=== PATIENT | male | born 1940 | race African-American/Black ===

== ENCOUNTER 2019-06-28 09:52 | Emergency (ER) | payer MEDICARE ==
[2019-06-28 12:01] LABS: Bilirubin Negative (Negative); Blood, Urine Negative (Negative); Clarity Clear (Clear); Glucose, Urine (Dipstick) 300 mg/dL (Negative); Leukocyte Negative Leu/uL (Negative); Nitrite Negative (Negative); Protein, Urine (Dipstick) Negative (Neg-Trace); Urobilinogen Normal mg/dL (Less than 2)
== END 2019-06-28 12:58 | disposition home or self-care (01) ==
LOC: ERS 09:52
DX: R33.9 Retention of urine, unspecified (principal); I10 Essential (primary) hypertension; E78.00 Pure hypercholesterolemia, unspecified; E11.9 Type 2 diabetes mellitus without complications; J44.9 Chronic obstructive pulmonary disease, unspecified; Z87.891 Personal history of nicotine dependence; Z79.84 Long term (current) use of oral hypoglycemic drugs
CPT/HCPCS: 51702; 81003

== ENCOUNTER 2019-07-12 12:32 | Inpatient (IN) | payer MEDICARE ==
[2019-07-12] MEDS ORDERED: Morphine 4 MG/ML VIAL ONE (13:45)
[2019-07-12] MEDS ORDERED: Ondansetron PF 4 MG/2 ML Vial ONE (13:46)
[2019-07-12 13:50] LABS: #Basophils 0.1 thou/uL (0.0-0.2); #Eosinphils 0.1 thou/uL (0.0-0.7); #Lymphocytes 1.4 thou/uL (1.20-3.40); #Monocytes 2.2 thou/uL (0.11-0.59); #Neutrophils 13.4 thou/uL (1.40-6.50); %Basophils 0.4 % (0.0-1.0); %Eosinophils 0.5 % (0.0-10.0); %Lymphocytes 8.1 % (21.0-51.0); %Monocytes 12.8 % (0.0-10.0); %Neutrophils 78.2 % (42.0-75.0); Hemoglobin 13.6 g/dL (14.0-18.0); Mean Corpuscular HGB CONC 33.9 g/dL (32.0-36.0); Mean Corpuscular Volume 91.2 fL (78.0-98.0); Mean Platelet Volume 8.1 fL (7.4-10.4); Platelet Count 230 thou/uL (130-400); White Blood Cell (WBC) Count 17.2 thou/uL (4.8-10.8)
--- NOTE | 2019-07-12 13:57 | RAD ---
EXAM: Single view of the chest HISTORY: Body aches COMPARISON: None FINDINGS: Single view of the chest shows a normal sized cardiomediastinal silhouette. There is no kvng dence of consolidation, mass, or pleural effusion. Degenerative changes in the spine. IMPRESSION: No evidence of acute cardiopulmonary disease
[2019-07-12 14:13] LABS: ALT (SGPT) 38 U/L (8-55); AST (SGOT) 22 U/L (5-34); Alkaline Phosphatase 84 U/L (40-110); Anion Gap 14 mmol/L (10-20); BUN (Urea Nitrogen) 14 mg/dL (8.4-25.7); Bilirubin, Total 0.6 mg/dL (0.2-1.2); Calc. Creatinine Clearance 0 mL/min (70-130); Calcium 10.1 mg/dL (7.8-10.44); Carbon Dioxide 26 mmol/L (23-31); Chloride 101 mmol/L (98-107); Estimated GFR-MDRD 84; Globulin 3.9 g/dL (2.4-3.5); Glucose 121 mg/dL (83-110); Lipase Less than 4 U/L (8-78); Potassium 3.9 mmol/L (3.5-5.1); Protein, Total 7.9 g/dL (5.8-8.1); Sodium 137 mmol/L (136-145)
[2019-07-12] MEDS ORDERED: Azithromycin 500 MG VIAL ONE (14:17)
[2019-07-12] MEDS ORDERED: Acetaminophen 500 MG TAB ONE (14:17)
[2019-07-12 14:29] LABS: Bilirubin Negative (Negative); Blood, Urine 2+ (Negative); Clarity Turbid (Clear); Glucose, Urine (Dipstick) Normal (Negative); Leukocyte 500 Leu/uL (Negative); Nitrite Negative (Negative); Protein, Urine (Dipstick) 70 mg/dL (Neg-Trace); Squamous Epithelial 0-3 HPF (0-3); Urobilinogen Normal mg/dL (Less than 2); WBC/HPF Greater than 50 HPF (0-3)
[2019-07-12 14:37] LABS: Bacteria/HPF 2+ HPF (None Seen)
[2019-07-12] MEDS ORDERED: cefTRIAXone\\ROCEPHIN 1 GM VIAL ONE (15:39)
--- NOTE | 2019-07-12 16:34 | HP ---
PRIMARY CARE PHYSICIAN: Dr. Breen. REASON FOR ADMISSION: Sepsis, urinary tract infection, and chest pain. HISTORY OF PRESENT ILLNESS: This is a 79-year-old male, who has underlying history of obesity, COPD, and enlarged prostate, who was brought to the emergency room for evaluation of chest discomfort. The patient is a very poor historian. He also reported that he has cough and he was having fever and chills at home. As per the patient's daughter, the patient pulled out the catheter, and since then, he does not have any problem with urination as well. The patient's urine was very dark in the emergency room and it was tea-colored. Urinalysis was consistent with urinary tract infection. His chest x-ray was unremarkable. Routine blood tests showed findings suggestive of leukocytosis, and he was having high-grade fever in the emergency room with temperature 101.2. He was meeting sepsis criteria and the patient was started on broad-spectrum antibiotic therapy after IV fluid. At this point, the patient is being admitted to telemetry floor for further evaluation. REVIEW OF SYSTEMS: CONSTITUTIONAL: Negative for weight loss or gain, ability to conduct usual activities. SKIN: Negative for rash, itching. EYES: Negative for double vision, pain. ENT/MOUTH: Negative for nose bleeding, neck stiffness, pain, tenderness. CARDIOVASCULAR: Negative for palpitations, dyspnea on exertion, orthopnea. RESPIRATORY: Negative for shortness of breath, wheezing, cough, hemoptysis, fever or night sweats. GASTROINTESTINAL: Negative for poor appetite, abdominal pain, heartburn, nausea, vomiting, constipation, or diarrhea. GENITOURINARY: Negative for urgency, frequency, dysuria, nocturia. MUSCULOSKELETAL: Negative for pain, swelling. NEUROLOGIC/PSYCHIATRIC: Negative for anxiety, depression. ALLERGY/IMMUNOLOGIC: Negative for skin rash, bleeding tendency. Please see my HPI for pertinent positives and negatives. All other review of systems reviewed and negative except as mentioned in the HPI. PAST MEDICAL HISTORY: Obesity; hypertension; dyslipidemia; diabetes, type 2; COPD; and enlarged prostate. PAST SURGICAL HISTORY: The patient reports that he had surgery for prostate, he is not sure about further detail. He also had a splint in his right lower extremity. PAST PSYCHIATRIC HISTORY: Reviewed and negative. SOCIAL HISTORY: The patient drinks alcohol socially, about half a pint of beer twice a week. He is a former smoker, he quit smoking more than 10 years ago. He lives with his daughter. FAMILY HISTORY: No strong family history of premature coronary artery disease, stroke, or cancer. ALLERGIES: NO KNOWN DRUG ALLERGIES. CURRENT HOME MEDICATIONS: The patient does not know the name of medication, but the patient's daughter went to home to bring medication bottle, at that time we will review. EMERGENCY ROOM COURSE: The patient has received Rocephin, IV fluid, azithromycin, Tylenol, Zofran, and morphine. PHYSICAL EXAMINATION: VITAL SIGNS: Currently in the emergency room, blood pressure 122/77, pulse 110, respiratory rate 25, temperature 101.2, and saturation 96% on room air. Weight 99.7 kg. GENERAL: The patient is currently alert, awake, follows commands. No obvious acute distress. HEENT: Head; normocephalic, atraumatic. Eyes; pupils round, reactive to light. Extraocular muscle intact. ENT, oropharynx within normal limits. Dry appearing mucous membranes. No oral lesion. No pharyngeal erythema. No exudate. NECK: Supple. No JVD. No meningeal signs of irritation. LUNGS: Grossly clear to auscultation, but obesity limiting examination. No obvious rhonchi or rales heard on examination. CARDIAC: S1 and S2 regular, tachycardia. No murmur. No gallop. No rub. ABDOMEN: Obesity present. Bowel sounds present. Nontender. Nondistended. No organomegaly. No mass. GENITALIA: Within normal limit. BACK: No CVA tenderness. EXTREMITIES: Upper extremities, passive movement of all joints are normal. There is a scar in the left wrist area, which is old. Lower extremity dressed, edema noted. Good distal pulsation. NEUROLOGIC: Grossly nonfocal examination. Speech normal. Cranial nerves 2 through 12 intact. Motor and sensation within normal limits. SKIN: No skin rash. HEMATOLOGICAL SYSTEM: No lymphadenopathy. PSYCHIATRIC: Normal affect. SIGNIFICANT LABORATORY DATA: EKG showing without any significant ST-T changes. Chest x-ray based on my review and reported as no evidence of acute cardiopulmonary process. CBC; WBC is 17.2, hemoglobin 13.6, and platelets 230. D-dimer 0.42. BMP; sodium 137, potassium 3.9, chloride 101, carbon dioxide 26, BUN 14, creatinine 1.03, glucose 121, and calcium 10.1. LFT; AST 22, ALT 38, alkaline phosphatase 84, and albumin 4.0. Lipase less than 4. Urinalysis consistent with urinary tract infection. Lactic acid 3.0. Influenza screen negative. ASSESSMENT AND PLAN: 1. Sepsis. The patient meets sepsis criteria. The patient has a temperature 101.2 as well as tachycardia, leukocytosis with left shift, and source of infection most likely urinary tract infection. The patient has received appropriate IV fluid in the emergency room and received appropriate antibiotic therapy. We will follow up on culture result. We will also add levofloxacin to increase coverage. 2. Urinary tract infection. The patient has enlarged prostate, and we will check for any urinary retention. If needed, then we will we will consider in-and-out catheter versus Pardo catheterization given his history of enlarged prostate. 3. Benign enlargement of prostate. We will continue Flomax 0.4 mg p.o. daily. 4. Chest pain. Description of chest pain is non-anginal, noncardiac. Flu screen is negative. Chest x-ray is normal. EKG is normal. We will keep on telemetry floor for further evaluation with serial cardiac enzyme and monitor on telemetry floor. It is possible that the patient also has respiratory symptoms with cough, and early pneumonia or atypical pneumonia cannot be entirely excluded. D-dimer is negative. 5. Obesity with BMI 30 to 40. Dietary education given. Weight loss education given. 6. Chronic obstructive pulmonary disease. We will continue DuoNeb therapy q.6 hourly p.r.n. 7. Lactic acidosis due to sepsis. We will repeat lactic acid level tomorrow. 8. Deep venous thrombosis prophylaxis, Lovenox 40 mg subcu daily. Gastrointestinal prophylaxis, Pepcid 20 mg p.o. b.i.d. CODE STATUS: The patient is a full code. DISPOSITION PLAN: Based on clinical course, we are expecting the patient's stay in the hospital more than 2 midnights. Plan of care discussed with the patient in detail. Job ID: [id number]
[2019-07-12 18:17] LABS: Lactic Acid 2.8 mmol/L (0.5-2.2)
[2019-07-12 18:25] LABS: Troponin I 0.012 ng/mL (< 0.028)
[2019-07-12 19:11] VITALS: BMI 31.4
[2019-07-12] MEDS ORDERED: Guaifenesin DM 100-10/5 ML UDCUP PO PRN (19:11)
[2019-07-12] MEDS ORDERED: Dextrose 5% in Water 1,000 ML IV PRN (19:11)
[2019-07-12] MEDS ORDERED: Loperamide HCl 2 MG CAP PO PRN (19:11)
[2019-07-12] MEDS ORDERED: Acetaminophen 325 MG TAB PO PRN (19:11)
[2019-07-12] MEDS ORDERED: Zolpidem Tartrate 5 MG TAB PO PRN (19:11)
[2019-07-12] MEDS ORDERED: Diabetic Tussin 200 MG/10 ML UDCUP PO PRN (19:11)
[2019-07-12] MEDS ORDERED: Senokot S 8.6-50 MG TAB PO PRN (19:11)
[2019-07-12] MEDS ORDERED: Calcium Carbonate 500 MG ChewTAB PO PRN (19:11)
[2019-07-12] MEDS ORDERED: Ondansetron ODT 4 MG TAB PO PRN (19:11)
[2019-07-12] MEDS ORDERED: Dextrose 50% Abboject 50 ML SYRINGE SLOW IVP PRN (19:11)
[2019-07-12] MEDS ORDERED: Cepastat Lozenges 1 LOZ PO PRN (19:11)
[2019-07-12] MEDS ORDERED: HYDROcodone/Acetaminophen 5/325 mg Tablet PO PRN (19:11)
[2019-07-12] MEDS ORDERED: Bisacodyl 10 MG SUPP PR PRN (19:11)
[2019-07-12] MEDS ORDERED: hydrALAZINE 20 MG/ML VIAL SLOW IVP PRN (19:11)
[2019-07-12] MEDS ORDERED: Ondansetron PF 4 MG/2 ML Vial IVP PRN (19:11)
[2019-07-12] MEDS ORDERED: HumaLOG 300 UNITS/3 ML VIAL SC PRN ×2 (19:11)
[2019-07-12] MEDS ORDERED: Sodium Chloride 0.65% Nasal 44 ML BOT EA NARE PRN (19:11)
[2019-07-12] MEDS ORDERED: Loratadine 10 MG TAB PO PRN (19:11)
[2019-07-12] MEDS ORDERED: Artificial Tears 18 DROP/0.9 ML EA EYE PRN (19:11)
[2019-07-12 19:58] LABS: Troponin I 0.035 ng/mL (< 0.028)
[2019-07-12] MEDS: Sodium Chloride 0.9% 1,000 ML IV SCH (20:25)
[2019-07-12] MEDS: Famotidine 20 MG TAB PO SCH (20:26)
[2019-07-12] MEDS: Tamsulosin HCl 0.4 MG CAP PO SCH (20:26)
[2019-07-13 04:57] LABS: Anion Gap 14 mmol/L (10-20); BUN (Urea Nitrogen) 15 mg/dL (8.4-25.7); Calc. Creatinine Clearance 77 mL/min (70-130); Calcium 8.9 mg/dL (7.8-10.44); Carbon Dioxide 20 mmol/L (23-31); Chloride 103 mmol/L (98-107); Estimated GFR-MDRD 77; Glucose 138 mg/dL (83-110); Lactic Acid 1.5 mmol/L (0.5-2.2); Potassium 4.1 mmol/L (3.5-5.1); Sodium 133 mmol/L (136-145)
[2019-07-13 05:22] LABS: Band 11 % (5-11); Hemoglobin 11.9 g/dL (14.0-18.0); Lymphocytes 8 % (21-51); MDiff Complete? YES; Mean Corpuscular HGB CONC 31.8 g/dL (32.0-36.0); Mean Corpuscular Hemoglobin 29.2 pg (27.0-31.0); Mean Corpuscular Volume 91.8 fL (78.0-98.0); Mean Platelet Volume 8.7 fL (7.4-10.4); Monocytes 9 % (0-10); Neutrophil 72 % (42-75); Platelet Count 227 thou/uL (130-400); Platelet Morphology Comment Appears Adequate; RBC Distribution Width 12.1 % (11.5-14.5); Red Blood Cell (RBC) Count 4.09 mill/uL (4.70-6.10); White Blood Cell (WBC) Count 27.3 thou/uL (4.8-10.8)
[2019-07-13] MEDS: metFORMIN XR 500 MG TAB PO SCH ×2 (08:09→16:53)
[2019-07-13] MEDS: Aspirin Chewable 81 MG TAB PO SCH (08:11)
[2019-07-13] MEDS: Pregabalin 50 MG CAP PO SCH ×2 (08:11→21:06)
[2019-07-13] MEDS: Famotidine 20 MG TAB PO SCH ×2 (08:12→21:06)
[2019-07-13] MEDS: Amlodipine 10 MG TAB PO SCH (08:12)
[2019-07-13] MEDS: Enoxaparin Sodium 40 MG/0.4 ML SYRINGE SC SCH (08:12)
[2019-07-13] MEDS: Saccharomyces boulardii 250 MG CAP PO SCH (08:12)
[2019-07-13] MEDS: Sodium Chloride 0.9% 1,000 ML IV SCH (08:13)
--- NOTE | 2019-07-13 08:47 | CT ---
CT Stone Protocol: 07/13/2019 6:41 AM HISTORY: Right-sided back and flank pain COMPARISON: None. TECHNIQUE: Multiple contiguous axial images were obtained and a CT of the abdomen and pelvis without IV contrast . Coronal and sagittal reformats were performed. FINDINGS: This examination is limited for the evaluation of solid organs and vascular structures due to the lac k of intravenous contrast. Lower Chest: within normal limits. Abdomen: Liver: within normal limits. Bile Ducts: Normal caliber. Gallbladder: No calcified gallstones. Normal caliber wall. Pancreas: within normal limits. Spleen: within normal limits. Adrenals: 1.7 cm right adrenal nodule with mean Hounsfield unit value of approximately 0. Kidneys: within normal limits. Pelvis: Reproductive Organs: No pelvic masses. Ureters: within normal limits. Bladder: within normal limits. Bowel: Normal caliber. Scattered diverticula in the colon. Mesenteric Lymph Nodes: No enlarged mesenteric lymph nodes. Peritoneum: No ascites or free air, no fluid collection. Vessels: Atherosclerotic calcifications in the aorta Retroperitoneum: within normal limits. Abdominal Wall: Postsurgical changes are seen along the anterior abdominal wall from prior hernia rep air. Bones: Degenerative changes in the spine. IMPRESSION: 1. No evidence of acute intraabdominal or pelvic abnormality. 2. Fat-containing right adrenal adenoma.
[2019-07-13] MEDS ORDERED: Non-Formulary Item 1 EACH (Metformin Hcl [Metformin Hcl Er] 750 MG) PO SCH (09:00)
[2019-07-13] MEDS ORDERED: Prevnar 13-Val Conj/PF 0.5 ML SYRINGE IM ONE (09:00)
[2019-07-13] MEDS ORDERED: FLU VACC TS2019-20(65YR UP)/PF 180 MCG/0.5 ML SYRINGE IM ONE (09:00)
--- NOTE | 2019-07-13 10:06 | PDOC.HOSPP ---
- Subjective Encounter Date: 07/13/19 Encounter Time: 08:20 Subjective: Patient seen and examined. No new complaints. No overnight events - Objective Vital Signs & Weight: Vital Signs (12 hours) Temp Pulse Resp BP Pulse Ox 07/13/19 08:12 114 H 07/13/19 08:00 98.5 F 112 H 18 134/72 95 07/13/19 03:00 98.7 F 114 H 18 118/57 L 92 L Weight Weight 225 lb 1.471 oz I&O: 07/12/19 07/13/19 07/14/19 06:59 06:59 06:59 Intake Total 1080 Output Total 750 Balance 330 Result Diagrams: 07/13/19 04:01 07/13/19 04:01 Additional Labs: Accuchecks 07/13/19 07/12/19 05:45 22:00 POC Glucose 129 H 228 H Radiology Reviewed by me: Yes (CT stone) EKG Reviewed by me: Yes Hospitalist ROS - Review of Systems Constitutional: denies: fever, chills, sweats, weakness, malaise, other ENT: denies: ear pain, ear discharge, nose pain, nose discharge, nose congestion , mouth pain, mouth swelling, throat pain, throat swelling, other Respiratory: denies: cough, dry, shortness of breath, hemoptysis, SOB with excertion, pleuritic pain, sputum, wheezing, other Cardiovascular: denies: chest pain, palpitations, orthopnea, paroxysmal noc. dyspnea, edema, light headedness, other Gastrointestinal: denies: nausea, vomiting, abdominal pain, diarrhea, constipation, melena, hematochezia, other Genitourinary: denies: dysuria, frequency, incontinence, hematuria, retention, other Musculoskeletal: denies: neck pain, shoulder pain, arm pain, back pain, hand pain, leg pain, foot pain, other Skin: denies: rash, lesions, ofelia, bruising, other - Medication Medications: Active Medications Generic Name Dose Route Start Last Admin Trade Name Freq PRN Reason Stop Dose Admin Hydrocodone Bitart/Acetaminophen 1 tab 07/12/19 19:11 07/13/19 08:21 [place] 5/325 PO 1 tab Q4H PRN Administration Moderate Pain (4-6) Amlodipine Besylate 10 mg 07/13/19 09:00 07/13/19 08:12 Norvasc PO 10 mg DAILY AUTUMN Administration Aspirin 81 mg 07/13/19 09:00 07/13/19 08:11 Aspirin Chewable PO 81 mg DAILY AUTUMN Administration Enoxaparin Sodium 40 mg 07/13/19 09:00 07/13/19 08:12 Lovenox SC 40 mg 0900 AUTUMN Administration Famotidine 20 mg 07/12/19 21:00 07/13/19 08:12 Pepcid PO 20 mg BID AUTUMN Administration Levofloxacin 750 mg/ Device 150 mls @ 100 mls/hr 07/12/19 20:00 07/12/19 20: 25 IVPB 150 mls 2000 AUTUMN Administration Metformin HCl 750 mg 07/13/19 08:00 07/13/19 08:09 Glucophage Xr PO 750 mg BID-WM AUTUMN Administration Pregabalin 50 mg 07/13/19 09:00 07/13/19 08:11 Lyrica PO 50 mg BID AUTUMN Administration Saccharomyces Boulardii 250 mg 07/13/19 09:00 07/13/19 08:12 Florastor PO 250 mg DAILY AUTUMN Administration Tamsulosin HCl 0.4 mg 07/12/19 21:00 07/12/19 20:26 Flomax PO 0.4 mg HS AUTUMN Administration - Exam General Appearance: NAD, awake alert Eye: PERRL, anicteric sclera ENT: normocephalic atraumatic, no oropharyngeal lesions Neck: supple, symmetric, no JVD Heart: RRR, no murmur, no gallops, no rubs Respiratory: CTAB, no wheezes, no rales, no ronchi Gastrointestinal: soft, non-tender, non-distended, normal bowel sounds Extremities: no cyanosis, no clubbing, no edema Skin: normal turgor, no lesions Neurological: no focal deficits Musculoskeletal: normal tone, normal strength Psychiatric: normal affect, normal behavior Hosp A/P (1) Sepsis Code(s): A41.9 - SEPSIS, UNSPECIFIED ORGANISM Status: Acute Qualifiers: Sepsis type: sepsis due to unspecified organism Sepsis acute organ dysfunction status: without acute organ dysfunction Qualified Code(s): A41.9 - Sepsis, unspecified organism (2) UTI (urinary tract infection) Status: Acute Qualifiers: Urinary tract infection type: acute cystitis Hematuria presence: without hematuria Qualified Code(s): N30.00 - Acute cystitis without hematuria (3) Lactic acidosis Code(s): E87.2 - ACIDOSIS Status: Acute (4) Type [address] elevation Code(s): I21.A1 - MYOCARDIAL INFARCTION TYPE 2 Status: Acute (5) Hypertension Code(s): I10 - ESSENTIAL (PRIMARY) HYPERTENSION Status: Chronic Qualifiers: Hypertension type: essential hypertension Qualified Code(s): I10 - Essential (primary) hypertension (6) Diabetes type 2, controlled Code(s): E11.9 - TYPE 2 DIABETES MELLITUS WITHOUT COMPLICATIONS Status: Chronic Qualifiers: Diabetes mellitus watermelon inspector insulin use: with residential use Diabetes mellitus complication status: without complication Qualified Code(s): E11.9 - Type 2 diabetes mellitus without complications; Z79.4 - buttermilk drier operator (current) use of insulin (7) Dyslipidemia Code(s): E78.5 - HYPERLIPIDEMIA, UNSPECIFIED Status: Chronic (8) Obesity (BMI 30-39.9) Code(s): E66.9 - OBESITY, UNSPECIFIED Status: Chronic - Plan old records reviewed/req, continue antibiotics, PT/OT 07/13/[address]in and le[address] sone protocol reviewed follow culture continue PT/OT medication reviewed as above and continue to provide supportive jail medication reconciled
[2019-07-13] MEDS: cefTRIAXone\\ROCEPHIN 1 GM in Sodium Chloride 0.9% 100 ML IVPB SCH (15:42)
[2019-07-13] MEDS: Atorvastatin Calcium 20 MG TAB PO SCH (21:06)
[2019-07-13] MEDS: Tamsulosin HCl 0.4 MG CAP PO SCH (21:07)
[2019-07-14 05:02] LABS: #Basophils 0.1 thou/uL (0.0-0.2); #Eosinphils 0.2 thou/uL (0.0-0.7); #Monocytes 2.3 thou/uL (0.11-0.59); %Basophils 0.3 % (0.0-1.0); %Eosinophils 1.1 % (0.0-10.0); %Monocytes 12.4 % (0.0-10.0); %Neutrophils 70.2 % (42.0-75.0); Hemoglobin 11.4 g/dL (14.0-18.0); Mean Corpuscular HGB CONC 33.6 g/dL (32.0-36.0); Mean Corpuscular Hemoglobin 30.4 pg (27.0-31.0); Mean Corpuscular Volume 90.4 fL (78.0-98.0); Mean Platelet Volume 8.8 fL (7.4-10.4); Platelet Count 211 thou/uL (130-400); RBC Distribution Width 11.9 % (11.5-14.5); Red Blood Cell (RBC) Count 3.75 mill/uL (4.70-6.10); White Blood Cell (WBC) Count 18.5 thou/uL (4.8-10.8)
[2019-07-14 05:26] LABS: Anion Gap 12 mmol/L (10-20); BUN (Urea Nitrogen) 17 mg/dL (8.4-25.7); Calc. Creatinine Clearance 75 mL/min (70-130); Calcium 8.7 mg/dL (7.8-10.44); Carbon Dioxide 24 mmol/L (23-31); Chloride 103 mmol/L (98-107); Estimated GFR-MDRD 74; Glucose 111 mg/dL (83-110); Potassium 3.8 mmol/L (3.5-5.1); Sodium 135 mmol/L (136-145)
[2019-07-14] MEDS: Famotidine 20 MG TAB PO SCH ×2 (08:49→20:09)
[2019-07-14] MEDS: Saccharomyces boulardii 250 MG CAP PO SCH (08:49)
[2019-07-14] MEDS: metFORMIN XR 500 MG TAB PO SCH ×2 (08:49→18:05)
[2019-07-14] MEDS: Aspirin Chewable 81 MG TAB PO SCH (08:49)
[2019-07-14] MEDS: Enoxaparin Sodium 40 MG/0.4 ML SYRINGE SC SCH (08:50)
[2019-07-14] MEDS: Amlodipine 10 MG TAB PO SCH (08:50)
[2019-07-14] MEDS: Pregabalin 50 MG CAP PO SCH ×2 (08:51→20:08)
--- NOTE | 2019-07-14 10:35 | PDOC.HOSPP ---
- Subjective Encounter Date: 07/14/19 Encounter Time: 08:15 Subjective: Patient seen and examined. No new complaints. No overnight events - Objective Vital Signs & Weight: Vital Signs (12 hours) Temp Pulse Resp BP Pulse Ox 07/14/19 08:50 80 07/14/19 04:00 98.7 F 80 18 108/53 L 95 07/14/19 00:00 98.4 F 101 H 18 134/63 95 Weight Weight 225 lb 1.471 oz I&O: 07/13/19 07/14/19 07/15/19 06:59 06:59 06:59 Intake Total 1080 840 Output Total 750 Balance 330 840 Result Diagrams: 07/14/19 04:30 07/14/19 04:30 Additional Labs: Accuchecks 07/14/19 07/13/19 07/13/19 05:53 20:54 16:24 POC Glucose 123 H 149 H 123 H 07/13/19 10:45 POC Glucose 180 H EKG Reviewed by me: Yes Hospitalist ROS - Review of Systems ENT: denies: ear pain, ear discharge, nose pain, nose discharge, nose congestion , mouth pain, mouth swelling, throat pain, throat swelling, other Respiratory: denies: cough, dry, shortness of breath, hemoptysis, SOB with excertion, pleuritic pain, sputum, wheezing, other Cardiovascular: denies: chest pain, palpitations, orthopnea, paroxysmal noc. dyspnea, edema, light headedness, other Gastrointestinal: denies: nausea, vomiting, abdominal pain, diarrhea, constipation, melena, hematochezia, other Genitourinary: denies: dysuria, frequency, incontinence, hematuria, retention, other Musculoskeletal: denies: neck pain, shoulder pain, arm pain, back pain, hand pain, leg pain, foot pain, other - Medication Medications: Active Medications Generic Name Dose Route Start Last Admin Trade Name Freq PRN Reason Stop Dose Admin Hydrocodone Bitart/Acetaminophen 1 tab 07/12/19 19:11 07/13/19 08:21 [place] 5/325 PO 1 tab Q4H PRN Administration Moderate Pain (4-6) Amlodipine Besylate 10 mg 07/13/19 09:00 07/14/19 08:50 Norvasc PO 10 mg DAILY AUTUMN Administration Aspirin 81 mg 07/13/19 09:00 07/14/19 08:49 Aspirin Chewable PO 81 mg DAILY AUTUMN Administration Atorvastatin Calcium 20 mg 07/13/19 21:00 07/13/19 21:06 Lipitor PO 20 mg HS AUTUMN Administration Enoxaparin Sodium 40 mg 07/13/19 09:00 07/14/19 08:50 Lovenox SC 40 mg 0900 AUTUMN Administration Famotidine 20 mg 07/12/19 21:00 07/14/19 08:49 Pepcid PO 20 mg BID AUTUMN Administration Ceftriaxone Sodium 1 gm/ 100 mls @ 200 mls/hr 07/13/19 15:00 07/13/19 15:42 Sodium Chloride IVPB 100 mls 1500 AUTUMN Administration Levofloxacin 750 mg/ Device 150 mls @ 100 mls/hr 07/12/19 20:00 07/13/19 21: 07 IVPB 150 mls 2000 AUTUMN Administration Metformin HCl 750 mg 07/13/19 08:00 07/14/19 08:49 Glucophage Xr PO 750 mg BID-WM AUTUMN Administration Pregabalin 50 mg 07/13/19 09:00 07/14/19 08:51 Lyrica PO 50 mg BID AUTUMN Administration Saccharomyces Boulardii 250 mg 07/13/19 09:00 07/14/19 08:49 Florastor PO 250 mg DAILY AUTUMN Administration Tamsulosin HCl 0.4 mg 07/12/19 21:00 07/13/19 21:07 Flomax PO 0.4 mg HS AUTUMN Administration - Exam General Appearance: NAD, awake alert Eye: PERRL, anicteric sclera ENT: normocephalic atraumatic, no oropharyngeal lesions Neck: supple, symmetric, no JVD Heart: RRR, no murmur, no gallops, no rubs Respiratory: CTAB, no wheezes, no rales, no ronchi Gastrointestinal: soft, non-tender, non-distended, normal bowel sounds Extremities: no cyanosis, no clubbing, no edema Skin: normal turgor, no lesions Neurological: no focal deficits Musculoskeletal: normal tone, normal strength Psychiatric: normal affect, normal behavior Hosp A/P (1) Sepsis Code(s): A41.9 - SEPSIS, UNSPECIFIED ORGANISM Status: Acute Qualifiers: Sepsis type: sepsis due to unspecified organism Sepsis acute organ dysfunction status: without acute organ dysfunction Qualified Code(s): A41.9 - Sepsis, unspecified organism (2) UTI (urinary tract infection) Status: Acute Qualifiers: Urinary tract infection type: acute cystitis Hematuria presence: without hematuria Qualified Code(s): N30.00 - Acute cystitis without hematuria (3) Lactic acidosis Code(s): E87.2 - ACIDOSIS Status: Acute (4) Type [address] elevation Code(s): I21.A1 - MYOCARDIAL INFARCTION TYPE 2 Status: Acute (5) Hypertension Code(s): I10 - ESSENTIAL (PRIMARY) HYPERTENSION Status: Chronic Qualifiers: Hypertension type: essential hypertension Qualified Code(s): I10 - Essential (primary) hypertension (6) Diabetes type 2, controlled Code(s): E11.9 - TYPE 2 DIABETES MELLITUS WITHOUT COMPLICATIONS Status: Chronic Qualifiers: Diabetes mellitus skilled nursing insulin use: with skilled nursing use Diabetes mellitus complication status: without complication Qualified Code(s): E11.9 - Type 2 diabetes mellitus without complications; Z79.4 - laborer marine terminal (current) use of insulin (7) Dyslipidemia Code(s): E78.5 - HYPERLIPIDEMIA, UNSPECIFIED Status: Chronic (8) Obesity (BMI 30-39.9) Code(s): E66.9 - OBESITY, UNSPECIFIED Status: Chronic - Plan old records reviewed/req, continue antibiotics 07/13/[address]in and levaquin [address] blessing protocol reviewed follow culture continue PT/OT medication reviewed as above and continue to provide supportive [facility] medication reconciled 07/14/19 DC tele transfer to medical medication reviewed as above and symptomatic treatment expecting discharge in 24 hours follow culture
[2019-07-14] MEDS: cefTRIAXone\\ROCEPHIN 1 GM in Sodium Chloride 0.9% 100 ML IVPB SCH (16:18)
[2019-07-14] MEDS: Tamsulosin HCl 0.4 MG CAP PO SCH (20:09)
[2019-07-14] MEDS: Atorvastatin Calcium 20 MG TAB PO SCH (20:09)
[2019-07-15 00:49] VITALS: TEMP 98.4
[2019-07-15 06:18] LABS: #Eosinphils 0.4 thou/uL (0.0-0.7); #Lymphocytes 2.5 thou/uL (1.20-3.40); #Monocytes 1.6 thou/uL (0.11-0.59); #Neutrophils 7.8 thou/uL (1.40-6.50); %Basophils 0.4 % (0.0-1.0); %Lymphocytes 20.1 % (21.0-51.0); %Monocytes 13.2 % (0.0-10.0); %Neutrophils 63.4 % (42.0-75.0); Hemoglobin 11.7 g/dL (14.0-18.0); Mean Corpuscular HGB CONC 33.3 g/dL (32.0-36.0); Mean Corpuscular Volume 90.3 fL (78.0-98.0); Mean Platelet Volume 8.2 fL (7.4-10.4); Platelet Count 247 thou/uL (130-400); RBC Distribution Width 11.9 % (11.5-14.5); Red Blood Cell (RBC) Count 3.89 mill/uL (4.70-6.10); White Blood Cell (WBC) Count 12.3 thou/uL (4.8-10.8)
[2019-07-15] MEDS ORDERED: metFORMIN 500 MG TAB PO SCH (08:00)
[2019-07-15] MEDS: Aspirin Chewable 81 MG TAB PO SCH (08:19)
[2019-07-15] MEDS: Famotidine 20 MG TAB PO SCH (08:19)
[2019-07-15] MEDS: Saccharomyces boulardii 250 MG CAP PO SCH (08:19)
[2019-07-15] MEDS: Amlodipine 10 MG TAB PO SCH (08:19)
[2019-07-15] MEDS: Enoxaparin Sodium 40 MG/0.4 ML SYRINGE SC SCH (08:20)
[2019-07-15] MEDS: Pregabalin 50 MG CAP PO SCH (08:20)
--- NOTE | 2019-07-15 10:45 | PDOC.HOSPP ---
- Subjective Encounter Date: 07/15/19 Encounter Time: 09:10 Subjective: Patient seen and examined. No new complaints. No overnight events - Objective Vital Signs & Weight: Vital Signs (12 hours) Temp Pulse Resp BP BP Pulse Ox 07/15/19 08:19 90 124/73 07/15/19 07:49 98.4 F 90 18 124/73 99 07/15/19 04:30 98.4 F 79 16 117/67 93 L 07/15/19 00:00 98.4 F 97 18 124/64 93 L Weight Weight 225 lb 1.471 oz I&O: 07/14/19 07/15/19 07/16/19 06:59 06:59 06:59 Intake Total 840 600 Output Total 1450 Balance 840 -850 Result Diagrams: 07/15/19 05:36 07/14/19 04:30 Additional Labs: Accuchecks 07/15/19 07/14/19 07/14/19 04:32 19:30 17:03 POC Glucose 125 H 150 H 113 H 07/14/19 10:52 POC Glucose 171 H Hospitalist ROS - Review of Systems ENT: denies: ear pain, ear discharge, nose pain, nose discharge, nose congestion , mouth pain, mouth swelling, throat pain, throat swelling, other Respiratory: denies: cough, dry, shortness of breath, hemoptysis, SOB with excertion, pleuritic pain, sputum, wheezing, other Cardiovascular: denies: chest pain, palpitations, orthopnea, paroxysmal noc. dyspnea, edema, light headedness, other Gastrointestinal: denies: nausea, vomiting, abdominal pain, diarrhea, constipation, melena, hematochezia, other Genitourinary: denies: dysuria, frequency, incontinence, hematuria, retention, other Musculoskeletal: denies: neck pain, shoulder pain, arm pain, back pain, hand pain, leg pain, foot pain, other - Medication Medications: Active Medications Generic Name Dose Route Start Last Admin Trade Name Freq PRN Reason Stop Dose Admin Hydrocodone Bitart/Acetaminophen 1 tab 07/12/19 19:11 07/13/19 08:21 [place] 5/325 PO 1 tab Q4H PRN Administration Moderate Pain (4-6) Amlodipine Besylate 10 mg 07/13/19 09:00 07/15/19 08:19 Norvasc PO 10 mg DAILY AUTUMN Administration Aspirin 81 mg 07/13/19 09:00 07/15/19 08:19 Aspirin Chewable PO 81 mg DAILY AUTUMN Administration Atorvastatin Calcium 20 mg 07/13/19 21:00 07/14/19 20:09 Lipitor PO 20 mg HS AUTUMN Administration Enoxaparin Sodium 40 mg 07/13/19 09:00 07/15/19 08:20 Lovenox SC 40 mg 0900 AUTUMN Administration Famotidine 20 mg 07/12/19 21:00 07/15/19 08:19 Pepcid PO 20 mg BID AUTUMN Administration Ceftriaxone Sodium 1 gm/ 100 mls @ 200 mls/hr 07/13/19 15:00 07/14/19 16:18 Sodium Chloride IVPB 100 mls 1500 AUTUMN Administration Levofloxacin 750 mg/ Device 150 mls @ 100 mls/hr 07/12/19 20:00 07/14/19 20: 07 IVPB 150 mls 2000 AUTUMN Administration Metformin HCl 750 mg 07/15/19 08:00 07/15/19 08:18 Glucophage PO 750 mg BID-WM AUTUMN Administration Pregabalin 50 mg 07/13/19 09:00 07/15/19 08:20 Lyrica PO 50 mg BID AUTUMN Administration Saccharomyces Boulardii 250 mg 07/13/19 09:00 07/15/19 08:19 Florastor PO 250 mg DAILY AUTUMN Administration Tamsulosin HCl 0.4 mg 07/12/19 21:00 07/14/19 20:09 Flomax PO 0.4 mg HS AUTUMN Administration - Exam General Appearance: NAD, awake alert Eye: PERRL, anicteric sclera ENT: normocephalic atraumatic, no oropharyngeal lesions Neck: supple, symmetric, no JVD Heart: RRR, no murmur, no gallops Respiratory: CTAB, no wheezes, no rales Gastrointestinal: soft, non-tender, non-distended, normal bowel sounds Extremities: no clubbing, no edema Skin: normal turgor, no lesions Neurological: no focal deficits Musculoskeletal: normal tone, normal strength Psychiatric: normal affect, normal behavior Hosp A/P (1) Sepsis Code(s): A41.9 - SEPSIS, UNSPECIFIED ORGANISM Status: Acute Qualifiers: Sepsis type: sepsis due to unspecified organism Sepsis acute organ dysfunction status: without acute organ dysfunction Qualified Code(s): A41.9 - Sepsis, unspecified organism (2) UTI (urinary tract infection) Status: Acute Qualifiers: Urinary tract infection type: acute cystitis Hematuria presence: without hematuria Qualified Code(s): N30.00 - Acute cystitis without hematuria (3) Lactic acidosis Code(s): E87.2 - ACIDOSIS Status: Acute (4) Type [address] elevation Code(s): I21.A1 - MYOCARDIAL INFARCTION TYPE 2 Status: Acute (5) Hypertension Code(s): I10 - ESSENTIAL (PRIMARY) HYPERTENSION Status: Chronic Qualifiers: Hypertension type: essential hypertension Qualified Code(s): I10 - Essential (primary) hypertension (6) Diabetes type 2, controlled Code(s): E11.9 - TYPE 2 DIABETES MELLITUS WITHOUT COMPLICATIONS Status: Chronic Qualifiers: Diabetes mellitus senior 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 Diabetes mellitus complication status: without complication Qualified Code(s): E11.9 - Type 2 diabetes mellitus without complications; Z79.4 - intermediate (current) use of insulin (7) Dyslipidemia Code(s): E78.5 - HYPERLIPIDEMIA, UNSPECIFIED Status: Chronic (8) Obesity (BMI 30-39.9) Code(s): E66.9 - OBESITY, UNSPECIFIED Status: Chronic - Plan old records reviewed/req, continue antibiotics 07/13/[address] continue [address]ce[address]in and levaquin CT blessing protocol reviewed follow culture continue PT/OT medication reviewed as above and continue to provide supportive residential medication reconciled 07/14/19 DC tele transfer to medical medication reviewed as above and symptomatic treatment expecting discharge in 24 hours follow culture 07/15/19 medication reviewed as above and continue to provide supportive care stable for discharge see discharge mary
[2019-07-15 11:26] VITALS: BP 134/67
--- NOTE | 2019-07-15 13:07 | DIS ---
DATE OF ADMISSION: 07/12/2019 DATE OF DISCHARGE: 07/15/2019 PRIMARY CARE PHYSICIAN: Dr. Breen. DISCHARGE DISPOSITION: Home. PRIMARY DISCHARGE DIAGNOSES: 1. Sepsis due to urinary tract infection. 2. Type [address] elevation due to demand ischemia. 3. Lactic acidosis due to sepsis. 4. Urinary tract infection. SECONDARY DISCHARGE DIAGNOSES: 1. Obesity with BMI 31. 2. Hypertension. 3. Dyslipidemia. 4. Diabetes type 2. PRIMARY PROCEDURE/OPERATION: None. RADIOLOGIST INVESTIGATION: Chest x-ray normal. CT abdomen and pelvis negative for any kidney stone. SIGNIFICANT LABORATORY DATA: WBC 12.3, hemoglobin 11.7, platelet 247. D-dimer 0.42. Sodium 135, potassium 3.8, BUN 17, creatinine 1.16, calcium 8.7. Lactic acid 1.5. Urinalysis suggestive of UTI. Blood culture negative. DISCHARGE MEDICATION: 1. Amlodipine 10 mg daily. 2. Lipitor 20 mg p.o. at bedtime. 3. Hydralazine 50 mg b.i.d. 4. Metformin 750 mg b.i.d. 5. Lyrica 50 mg twice daily. 6. Omnicef 300 mg p.o. twice daily for 7 days. CONTRAINDICATION: None. CODE STATUS: Full code. INPATIENT DROP WORKER: None. ALLERGIES: NO KNOWN DRUG ALLERGIES. DISCHARGE PLAN: Posthospital the patient is instructed to make appointment with primary care physician in one week. HOSPITAL COURSE: A 79-year-old male with above-mentioned medical problem, who was admitted by me. Please see my HPI for more details. The patient was brought to ER because he was having vague chest discomfort and that is why we kept in hospital and ruled out acute coronary syndrome. The patient was also having urinary tract infection and in the emergency room he was having fever and he was meeting sepsis criteria. We admitted him to telemetry floor initially and treated him with broad-spectrum antibiotic therapy with Rocephin and levofloxacin. On discharge, we changed to Omnicef. The patient had a CT stone protocol which was negative for any acute process. Chest x-ray was unremarkable. While in hospital, he remained hemodynamically stable, afebrile and tolerating p.o. well and ambulatory. The patient is seen and examined at bedside today. All new medication prescription sent to his pharmacy. The patient is medically stable for discharge today. Job ID: [id number]
--- NOTE | 2019-07-16 09:53 | PQF ---
LUZ VERMA SALIM NOORJIBHAI MD [id number] CLINICAL DOCUMENTATION CLARIFICATION FORM: POST DISCHARGE Addendum to original discharge summary date: ____ Late entry note date: __ DATE: 07/16/2019 ATTN :TRUE RICK MD Please exercise your independent, professional judgment in responding to the clarification form. Clinical indicators are provided on the bottom of this form for your review Please check appropriate box(s): [ ] UTI is due to Garcia catheter [x ] UTI is not due to Garcia catheter [ ] Other diagnosis [ ] Unable to determine For continuity of documentation, please document condition throughout progress notes and discharge summary. Thank You. CLINICAL INDICATORS - SIGNS / SYMPTOMS / LABS Discussed that pt has UTI.Daughter reports pt has garcia placed a few days ago- documented in ED on 07/12 by Nando Victor Urinary tract infection.The patient has enlarged prostate and we will check for any urinary retention.If needed then we will consider in and out catheter versus garcia ..catheterization given his history of enlarged prostate.Documented in H&P on 07/12 by True Rick Urinalysis consistent with UTI-.Documented in H&P on 07/12 by True Rick Sepsis due to UTI-Documented in DS on 07/15 by True Rick RISK FACTORS History of enlarged prostate.Documented in H&P on 07/12 by True Rick Sepsis due to UTI-Documented in DS on 07/15 by True Rick TREATMENT: Rocephin 1 gm IV-Medication snapshot Azithromycin 500mg-Medication snapshot (This form is maintained as a part of the permanent medical record) 2014 [email or web address]. All Rights Reserved [email or web address] [not provided] MTDD
== END 2019-07-15 12:49 | disposition home or self-care (01) | DRG 871 ==
LOC: ERS 12:32 → 2NO 18:33 → T4-B 07-14 15:44
PROVIDERS: ADMIT Internal Medicine; ATTEND Internal Medicine
DX: A41.9 Sepsis, unspecified organism (principal); I21.A1 Myocardial infarction type 2; E87.2 Acidosis; N30.00 Acute cystitis without hematuria; E66.9 Obesity, unspecified; Z68.31 Body mass index [BMI] 31.0-31.9, adult; I10 Essential (primary) hypertension; E11.9 Type 2 diabetes mellitus without complications; E78.5 Hyperlipidemia, unspecified; Z87.891 Personal history of nicotine dependence; J44.9 Chronic obstructive pulmonary disease, unspecified; N40.0 Benign prostatic hyperplasia without lower urinary tract symptoms; Z79.4 Long term (current) use of insulin
CPT/HCPCS: 36415; 36416; 71045; 74176; 80048; 80053; 81003; 81015; 83605; 83690; 84484; 85025; 85379; 87040; 87149; 87804; 93005; 96361; 96365; 96367; 96375; J0456; J0696; J1650; J1956; J2270; J2405; J3490

== ENCOUNTER 2019-10-21 09:58 | Outpatient (CLI) | payer MEDICARE ==
--- NOTE | 2019-10-21 10:17 | RAD ---
LUMBAR SPINE SERIES 3 VIEWS: HISTORY: Back pain. FINDINGS: The vertebral bodies are normal in height. Disk space height is well preserved. There are degenerat dandy osteophyte changes present. There are also degenerative facet changes noted. Pedicles are intac t. Atherosclerotic changes of the aorta are noted. Evidence for a previous ventral hernia repair an d post cholecystectomy changes are seen. IMPRESSION: Mild arthritic changes of the lumbar spine. Changes are mainly related to prominent degenerative fac et changes. POS: [facility]
== END 2019-10-21 09:59 | disposition home or self-care (01) ==
LOC: RAD-FRANK 09:58
PROVIDERS: ATTEND Internal Medicine
DX: M54.89 Other dorsalgia (principal); M46.96 Unspecified inflammatory spondylopathy, lumbar region; M47.816 Spondylosis without myelopathy or radiculopathy, lumbar region
CPT/HCPCS: 72100

== ENCOUNTER 2019-10-27 14:22 | Inpatient (IN) | payer MEDICARE ==
[2019-10-27] MEDS ORDERED: Iopamidol 370 76% 100 ML VIAL ONE (14:37)
[2019-10-27] MEDS ORDERED: Aspirin Chewable 81 MG TAB ONE (14:48)
[2019-10-27] MEDS ORDERED: Nitroglycerin 0.4 MG TAB 1 EACH ONE (14:48)
[2019-10-27 14:52] LABS: #Basophils 0.1 thou/uL (0.0-0.2); #Eosinphils 0.6 thou/uL (0.0-0.7); #Lymphocytes 3.2 thou/uL (1.20-3.40); #Monocytes 0.8 thou/uL (0.11-0.59); #Neutrophils 3.6 thou/uL (1.40-6.50); %Eosinophils 7.6 % (0.0-10.0); %Lymphocytes 38.4 % (21.0-51.0); %Monocytes 9.7 % (0.0-10.0); %Neutrophils 43.2 % (42.0-75.0); Hemoglobin 13.7 g/dL (14.0-18.0); Mean Corpuscular HGB CONC 33.7 g/dL (32.0-36.0); Mean Corpuscular Hemoglobin 30.6 pg (27.0-31.0); Mean Corpuscular Volume 90.6 fL (78.0-98.0); Mean Platelet Volume 8.8 fL (7.4-10.4); Platelet Count 240 thou/uL (130-400); RBC Distribution Width 12.4 % (11.5-14.5); Red Blood Cell (RBC) Count 4.48 mill/uL (4.70-6.10); White Blood Cell (WBC) Count 8.4 thou/uL (4.8-10.8)
--- NOTE | 2019-10-27 14:58 | RAD ---
CHEST 1 VIEW: HISTORY: Chest pain. COMPARISON: Radiograph of 07/12/2019. FINDINGS: There is an ovoid nodule projecting in the left lung base, likely a prominent nipple shadow. The remainder of the lungs are clear. No pneumothorax. No effusion. There ossification of the righ t superior acromioclavicular ligament as well as coracoclavicular ligament suggesting old injury. The coronary arteries are mildly distended. IMPRESSION: 1. No acute intrathoracic abnormality. 2. Findings of pulmonary hypertension. 3. A 5 mm nodule projecting in the left lung base. This likely reflects a prominent nipple shadow. If clinically warranted, followup 2 views with nipple markers is recommended. POS: [facility]
[2019-10-27 15:18] LABS: ALT (SGPT) 30 U/L (8-55); AST (SGOT) 25 U/L (5-34); Albumin 3.9 g/dL (3.4-4.8); Alkaline Phosphatase 92 U/L (40-110); Anion Gap 16 mmol/L (10-20); BUN (Urea Nitrogen) 16 mg/dL (8.4-25.7); Bilirubin, Total 0.3 mg/dL (0.2-1.2); CK (CPK) 45 U/L (30-200); Calc. Creatinine Clearance 0 mL/min (70-130); Calcium 9.9 mg/dL (7.8-10.44); Carbon Dioxide 25 mmol/L (23-31); Chloride 101 mmol/L (98-107); Estimated GFR-MDRD 86; Globulin 3.8 g/dL (2.4-3.5); Glucose 113 mg/dL (83-110); Protein, Total 7.7 g/dL (5.8-8.1); Sodium 137 mmol/L (136-145)
--- NOTE | 2019-10-27 16:46 | CT ---
CT ANGIOGRAM OF THE CHEST WITH CONTRAST: History: Chest pain Comparison: Radiograph of the chest used for reference, same day. FINDINGS: CT angiogram of the chest performed after the intravenous administration of contrast. 3D rendering is provided. Asymmetric enlargement of the left lobe of the thyroid with a few internal calcifications. Nonemergen t thyroid ultrasound is recommended for follow up. Celiac trunk and superior mesenteric arteries are patent. The pulmonary arteries are without a segmen charlene filling defect. The pulmonary trunk is dilated measuring 3.5 cm. There right and left main pulmonary arteries are dil ated. Mild fullness of the interstitium of the hilum bilaterally. No lobar consolidation. There is faint gr ound glass opacity within the lingula measuring 7 mm. Thoracic spine is without acute abnormality. No acute displaced rib fracture. IMPRESSION: 1. No pulmonary arterial filling defect. 2. Asymmetric enlarged left lobe of the thyroid with a few internal calcifications. Nonemergent thyro id ultrasound follow up is recommended. 3. 5-6 mm ground glass nodules in the lingula. Follow up CT at 6-12 months is recommended. 4. 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 5. Dilated pulmonary arteries suggesting pulmonary hypertension. 6. Low grade fullness of the interstitium bilaterally suggesting a component of pulmonary vascular co ngestion. No background pulmonary edema. POS: [facility]
[2019-10-27] MEDS ORDERED: Morphine 4 MG/ML VIAL ONE (17:16)
[2019-10-27] MEDS ORDERED: Ondansetron ODT 4 MG TAB SL PRN (19:08)
[2019-10-27] MEDS ORDERED: Ondansetron PF 4 MG/2 ML Vial IVP PRN (19:08)
[2019-10-27] MEDS ORDERED: Acetaminophen 325 MG TAB PO PRN (19:08)
[2019-10-27 19:16] LABS: Troponin I Less than 0.010 ng/mL (< 0.028)
[2019-10-27 21:33] VITALS: BMI 32.2
[2019-10-27 21:44] LABS: Troponin I Less than 0.010 ng/mL (< 0.028)
[2019-10-28] MEDS ORDERED: Dextrose 5% in Water 1,000 ML IV PRN (09:57)
[2019-10-28] MEDS ORDERED: HumaLOG 300 UNITS/3 ML VIAL SC PRN (09:57)
[2019-10-28] MEDS ORDERED: Dextrose 50% Abboject 50 ML SYRINGE IVP PRN (09:57)
[2019-10-28] MEDS ORDERED: Aspirin 81 mg Enteric Coated Tablet PO SCH (10:45)
[2019-10-28] MEDS ORDERED: Lidocaine 0.5%/Epinephrine 1:200,000 50 ml Vial FS SCH (10:45)
[2019-10-28] MEDS ORDERED: Ketorolac Tromethamine 30 MG/ML VIAL IVP SCH (11:00)
--- NOTE | 2019-10-28 11:03 | CON ---
DATE OF CONSULTATION: 10/28/2019 REASON FOR CONSULTATION: Chest pain. HISTORY OF PRESENT ILLNESS: Mr. Aguillon is a 79-year-old man. He has been having chest pain. The pain is the worst. The right lower lateral portion of his chest hurts with a deep breath or with cough. Also, the left lower part of his chest hurts. He also has upper back hurts. It hurts when he twists and turns. The patient does not have fever. There is no substernal chest pain or pressure and nothing typical of angina. However, the patient does have history of diabetes and peripheral vascular disease. Therefore, due to the clinical high risk, he has been brought in for evaluation of his chest pain. PAST MEDICAL HISTORY: 1. Diabetes. 2. Hypertension. 3. Peripheral vascular disease. His family says he has had stents put his legs in [place] many years ago. They do not know the details. MEDICATIONS: At home, 1. Metformin. 2. Naproxen. 3. Hydralazine. 4. Avalide. 5. Cyclobenzaprine. ALLERGIES: NONE KNOWN. SOCIAL HISTORY: Positive for alcohol consumption. REVIEW OF SYSTEMS: CONSTITUTIONAL: Positive for generalized weakness. VISION: No changes. HEARING: No changes. PULMONARY: No cough or wheezing. GASTROINTESTINAL: No nausea, vomiting, or diarrhea. SKIN: No rashes. NEUROLOGIC: No unilateral weakness or numbness. PSYCHIATRIC: No unusual depression or anxiety. PHYSICAL EXAMINATION: GENERAL: This is a pleasant elderly gentleman, 79 years of age. VITAL SIGNS: His blood pressure was earlier 132/72 and 164/79, pulse 102. LUNGS: Clear. CARDIAC: Normal S1. Normal S2. ABDOMEN: Soft and nontender. EXTREMITIES: Warm and dry. No clubbing or cyanosis or edema. On evaluating the pulses, I do not feel pedal pulses. I do feel popliteal pulses and femoral pulses bilaterally. DIAGNOSTIC DATA: The EKG shows sinus rhythm with what looks like an old inferior infarct. There is no ST or T-wave changes. Heart rate was 113 at that point. Troponin levels are negative. ASSESSMENT: 1. Chest pain atypical for angina. 2. Probable underlying coronary artery disease. 3. Peripheral vascular disease. 4. Diabetes. 5. Sinus tachycardia, on admission. 6. Musculoskeletal pain. PLAN: 1. I gave him a dose of Toradol. 2. Stress test to risk stratify. 3. Check lipids, will probably need lipid-lowering therapy. Job ID: [id number]
[2019-10-28] MEDS: hydrALAZINE 25 MG TAB PO SCH (17:25)
--- NOTE | 2019-10-28 18:35 | HP ---
REASON FOR ADMISSION AND CHIEF COMPLAINT: Chest pain. HISTORY OF PRESENT ILLNESS: Mr. Aguillon is a 79-year-old Afro-Indian male with past medical history of hypertension, diabetes, and hyperlipidemia, came because of pain in the front of the chest, goes across the chest, it is sharp in nature, not associated with diaphoresis, nausea, or vomiting. No headache. The patient was seen in the hospital a few days ago, was evaluated and released, but he came back with this pain. He did not have any headache or dizziness. The pain gets worse on deep breathing and with coughing. The pain is also worse on the movements when he twists and turns, but in view of his risk factors, the patient is admitted to rule out myocardial infarction. PAST MEDICAL HISTORY: 1. Diabetes mellitus. 2. Hypertension. 3. Hyperlipidemia. 4. Peripheral vascular disease. 5. COPD. 6. Enlarged prostate. PAST SURGICAL HISTORY: 1. Status post surgery for prostate. 2. Status post right lower extremity stent. CURRENT MEDICATIONS: The patient is on hydralazine 50 mg b.i.d., irbesartan/hydrochlorothiazide, which is Avalide 300/12.5 daily, naproxen 500 mg b.i.d., metformin 750 b.i.d., and Flexeril p.r.n. ALLERGIES: NKDA. FAMILY HISTORY: Nothing contributory. SOCIAL HISTORY: The patient lives with family. No history of smoking. No history of alcohol. REVIEW OF SYSTEMS: CARDIOVASCULAR: Has atypical chest pain. RESPIRATORY: No shortness of breath. No fever or cough. GASTROINTESTINAL: No nausea or vomiting. No abdominal pain. CENTRAL NERVOUS SYSTEM: No headache. No dizziness. PHYSICAL EXAMINATION: GENERAL: The patient is alert, awake, and oriented x3. VITAL SIGNS: Temperature 98, pulse 103, respirations 20, and blood pressure 130/70. HEENT: Head is normocephalic and atraumatic. Pupils are equal and reactive. Nasopharynx is pale and dry. NECK: Supple. No JVD. LUNGS: Bilateral air entry. No rales. No rhonchi. HEART: S1 and S2, regular. Chest wall is tender on the right side. ABDOMEN: Soft. No distention. No tenderness. Normal bowel sounds. RECTAL: Deferred. CENTRAL NERVOUS SYSTEM: No focal deficits. LABORATORY DATA: CBC shows WBC 8.4, hemoglobin 13, hematocrit 40, and platelets 240. Metabolic panel; sodium 137, potassium 5, chloride 101, CO2 of 25, urea nitrogen 16, creatinine 1, and glucose 112. Troponin I less than 0.010. Chest x-ray, no acute intrathoracic abnormality. CT angio chest did not reveal any pulmonary embolism, which showed asymmetric enlargement of left lobe of thyroid, also showed some nodules, followup CT in 6 month is recommended. Also, history of some pulmonary hypertension with dilated pulmonary artery. EKG is sinus tachycardia with heart rate of 130. No acute ST-T changes seen. ASSESSMENT: 1. Atypical chest pain, rule out myocardial infarction. 2. Hyperlipidemia. 3. Hypertension. 4. Diabetes mellitus. 5. Peripheral vascular disease. 6. Possible musculoskeletal chest pain. 7. Pulmonary nodules. 8. Possible pulmonary hypertension. PLAN: 1. Vital signs q.4 hours. 2. Activities, as tolerated. 3. Allergies, NKDA. 4. Hep-Lock. 5. Continue home medications. 6. Accu-Chek before meals and at bedtime with sliding scale mild with regular insulin. 7. Cardiology consult. 8. Aspirin daily. 9. Toradol p.r.n. The patient will possibly undergo stress test. If it is negative, the patient will be discharged home. Job ID: [id number]
[2019-10-28] MEDS: Cyclobenzaprine 10 MG TAB PO SCH (21:11)
[2019-10-29 04:47] LABS: Cardiac Risk 3.2 (Less than 4.5)
[2019-10-29] MEDS ORDERED: Losartan 25 MG TAB PO SCH (09:00)
[2019-10-29] MEDS ORDERED: Aspirin 81 mg Enteric Coated Tablet PO SCH (09:00)
[2019-10-29] MEDS ORDERED: Hydrochlorothiazide 25 MG TAB PO SCH (09:00)
[2019-10-29] MEDS ORDERED: Regadenoson 0.4 MG/5 ML SYRINGE ONE (09:40)
[2019-10-29] MEDS: hydrALAZINE 25 MG TAB PO SCH ×2 (10:40→18:01)
[2019-10-29] MEDS: Cyclobenzaprine 10 MG TAB PO SCH (10:41)
--- NOTE | 2019-10-29 10:56 | NM ---
EXAM: CARDIAC SPECT HISTORY: Chest pain, COPD, coronary artery disease, peripheral vascular disease, dyspnea, hypertensio n, diabetes, dyslipidemia TECHNIQUE: A myocardial perfusion scan was performed using the single isotope 2 day protocol with karol hnetium 99m sestamibi. [30 mCi] was injected intravenously for the rest exam followed by 30 mCi for the stress study. Pharmacologic stress with Lexiscan was monitored and interpreted by Onur Aranda, nurse practitioner FINDINGS: Homogeneous tracer distribution is seen in the myocardial segments on stress and rest image s without fixed or reversible defects. Gated SPECT LVEF: 51% Wall motion exam: Normal IMPRESSION: Normal myocardial perfusion scan
[2019-10-29] MEDS ORDERED: Ketorolac Tromethamine 30 MG/ML VIAL IVP SCH (14:45)
--- NOTE | 2019-10-29 15:07 | PRG ---
DATE OF SERVICE: 10/29/2019 SUBJECTIVE: Mr. Aguillon feels better today, but still has some right lateral chest pain with a deep breath. He feels like a "sticking pain." OBJECTIVE: VITAL SIGNS: His blood pressure is 130/70, pulse is 90. LUNGS: Clear. CARDIAC: Normal S1, normal S2. ASSESSMENT: 1. Chest pain, appears to be chest wall pain, costochondritis. 2. Diabetes. 3. Mild hypercholesterolemia. 4. Hypertension. PLAN: 1. Give him one more dose of Toradol. 2. Recommend at least a short-term course of anti-inflammatories as an outpatient. 3. Stress test revealed no ischemia. 4. Recommend statin in view of the patient with diabetes. Target LDL cholesterol under 70. 5. Continue aspirin 81 mg a day. The patient to go home from a cardiac standpoint. No other cardiac intervention is indicated at this point. Job ID: [id number]
[2019-10-29 15:35] VITALS: TEMP 98.9
[2019-10-29 18:03] VITALS: BP 175/98
[2019-10-29] MEDS ORDERED: Rosuvastatin 20 MG TAB PO SCH (21:00)
--- NOTE | 2019-10-30 10:03 | STRESS ---
Acquisition Time: 2019-10-29 09:24:34 Total Exercise Time: 00:01:00 Test Indications: CHEST PAIN Medications: Protocol: LEXISCAN Max HR: 109 BPM 77% of Pred: 141 BPM Max BP: 162/078 mmHG Max Work Load: 1.0 METS RESTING ECG: NORMAL SINUS RHYTHM AT 92 BPM SYMPTOMS: NONE NORMAL BP RESPONSE FOR LEXISCAN ECTOPY: RARE PVCs ECG STRESS: NO SIGNIFICANT CHANGES INTERPRETATION: NEGATIVE ECG/AWAIT NUCLEAR IMAGES FOR DEFINITIVE DIAGNOSIS Confirmed by ELO LAFLEUR ([id number]), photo editor KOBE CRUZ ([id number]) on 10/30/2019 10:03:17 AM Referred By: MD nOur SCOTT Confirmed By:ELO LAFLEUR
--- NOTE | 2019-10-30 11:03 | EKG ---
Test Reason : Blood Pressure : / mmHG Vent. Rate : 113 BPM Atrial Rate : 113 BPM P-R Int : 196 ms QRS Dur : 090 ms QT Int : 314 ms P-R-T Axes : 040 -21 041 degrees QTc Int : 430 ms Sinus tachycardia Inferior infarct , age undetermined Cannot rule out Anterior infarct , age undetermined Abnormal ECG Confirmed by JENIFER JENSEN, MARTHA ([id number]), video effects editor FABIO FLORES ([id number]) on 10/30/2019 11:03:06 AM Referred By: Confirmed By:MARTHA BURGESS MD
--- NOTE | 2019-10-30 14:28 | DIS ---
DATE OF ADMISSION: 10/27/2019 DATE OF DISCHARGE: 10/29/2019 ADMITTING DIAGNOSES: 1. Atypical chest pain, rule out myocardial infarction. 2. Hyperlipidemia. 3. Hypertension. 4. Diabetes mellitus. 5. Peripheral vascular disease. 6. Possible musculoskeletal chest pain. 7. Pulmonary nodules. 8. Possible pulmonary hypertension. FINAL DIAGNOSES: 1. Atypical chest pain. No evidence of acute myocardial infarction. 2. Hyperlipidemia. 3. Hypertension. 4. Diabetes mellitus. 5. Peripheral vascular disease. 6. Musculoskeletal chest pain. 7. Pulmonary nodules. 8. Pulmonary hypertension as well as asymmetrically enlarged left lobe of thyroid. BRIEF SUMMARY OF HOSPITAL COURSE: Mr. Aguillon is a 79-year-old male, admitted because of chest pain. In view of risk factor, the patient was admitted to rule out UT. The serial troponins were done and they were negative. Cardiology consult was done. The patient was seen by Dr. Lr. He felt the patient has atypical chest pain, but in view of risk factors, he ordered a stress test. The patient underwent Cardiolite stress test and it was reported as negative for ischemia. The patient was given Toradol in the hospital, which helped to relieve the pain. So in view of improvement in the pain, the patient is being discharged. At the time of discharge, he was stable, his vital signs were stable. Lungs clear. Heart sounds regular. Abdomen is soft and nontender. Bowel sounds present. DISCHARGE MEDICATIONS: Include; 1. Metformin 750 mg b.i.d. 2. Naproxen 500 mg b.i.d. for a week. 3. Hydralazine 50 mg b.i.d. 4. Avalide 300 mg/12.5 daily. 5. Flexeril one tablet b.i.d., 10 mg. 6. Aspirin 81 mg daily. 7. Rosuvastatin 20 mg at bedtime. The patient will come for followup in 2 weeks. He will get a thyroid ultrasound as an outpatient. Job ID: [id number]
== END 2019-10-29 19:30 | disposition home or self-care (01) | DRG 313 ==
LOC: ERS 14:22 → 2NO 19:04
PROVIDERS: ADMIT Internal Medicine; ATTEND Student in an Organized Health Care Education/Training Program
DX: R07.89 Other chest pain (principal); E78.5 Hyperlipidemia, unspecified; I10 Essential (primary) hypertension; E11.9 Type 2 diabetes mellitus without complications; I73.9 Peripheral vascular disease, unspecified; R91.1 Solitary pulmonary nodule; I27.20 Pulmonary hypertension, unspecified; E78.00 Pure hypercholesterolemia, unspecified; J44.9 Chronic obstructive pulmonary disease, unspecified; Z87.891 Personal history of nicotine dependence
CPT/HCPCS: 36415; 36416; 71045; 71275; 78452; 80053; 80061; 82550; 83690; 84484; 85025; 93005; 93017; 94760; 96374; A9500; J1885; J2270; J2785; Q9967

== ENCOUNTER 2019-11-10 13:37 | Outpatient (CLI) | payer MEDICARE ==
--- NOTE | 2019-11-10 14:36 | ULT ---
THYROID ULTRASOUND: INDICATION: Abnormal CT. FINDINGS: The right thyroid lobe measures 6.1 x 2.5 x 2.3 cm. There is a 7 mm oval hypoechoic solid nodule wit hin the superior pole of the right thyroid lobe. There is a 2.4 x 2 x 1.2 cm heterogeneous solid nod ule within the mid pole of the right thyroid lobe. There is a 1.6 cm heterogeneous but predominantly hyperechoic nodule involving the lower pole of the right thyroid lobe. The left thyroid lobe measures 6.3 x 3.6 x 3.3 cm. There is a mixed cystic and solid hyperechoic nod ule involving the mid to inferior pole of the left thyroid lobe. The lesion is slightly taller than wide but with smooth margins. No internal calcifications are evident. Findings are consistent with a TIRADS 4 lesion. The thyroid isthmus measures 0.54 cm. IMPRESSION: 1. TIRADS 4 lesion of the mid to lower pole of the left thyroid lobe. Recommend further evaluation with ultrasound-guided fine needle aspiration. 2. A 2.4 cm TIRADS 3 lesion involving the mid gland of the right thyroid lobe. Recommend followup u ltrasound in 1 year to document stability. POS: [facility]
== END 2019-11-10 13:38 | disposition home or self-care (01) ==
LOC: BICULT 13:37
DX: E04.9 Nontoxic goiter, unspecified (principal); E07.89 Other specified disorders of thyroid
CPT/HCPCS: 76536

== ENCOUNTER 2019-12-12 13:13 | Emergency (ER) | payer MEDICARE ==
[~2019-12-12 13:13] MED LIST: Iopamidol-370 76% 500 ML 1 ML ONE
--- NOTE | 2019-12-12 14:11 | RAD ---
Exam: Chest one view HISTORY:Chest pain Comparison: 10/27/2019 FINDINGS: Cardiac silhouette: Normal Aorta: Unremarkable Pulmonary vessels: Normal Costophrenic angles: Clear LUNGS: No masses or consolidation. Pneumothorax: None Osseous abnormalities: None IMPRESSION: No acute cardiopulmonary process.
[2019-12-12 14:54] LABS: #Eosinphils 0.9 thou/uL (0.0-0.7); #Monocytes 1.4 thou/uL (0.11-0.59); %Basophils 0.3 % (0.0-1.0); %Eosinophils 8.5 % (0.0-10.0); %Monocytes 13.1 % (0.0-10.0); Hemoglobin 13.7 g/dL (14.0-18.0); Mean Corpuscular HGB CONC 31.7 g/dL (32.0-36.0); Mean Corpuscular Hemoglobin 29.3 pg (27.0-31.0); Mean Corpuscular Volume 92.4 fL (78.0-98.0); Mean Platelet Volume 8.3 fL (7.4-10.4); Platelet Count 224 thou/uL (130-400); RBC Distribution Width 12.2 % (11.5-14.5); Red Blood Cell (RBC) Count 4.67 mill/uL (4.70-6.10); White Blood Cell (WBC) Count 10.3 thou/uL (4.8-10.8)
[2019-12-12 15:09] LABS: ALT (SGPT) 38 U/L (8-55); AST (SGOT) 23 U/L (5-34); Albumin 3.9 g/dL (3.4-4.8); Alkaline Phosphatase 102 U/L (40-110); Anion Gap 14 mmol/L (10-20); BUN (Urea Nitrogen) 17 mg/dL (8.4-25.7); Bilirubin, Total 0.4 mg/dL (0.2-1.2); Calc. Creatinine Clearance 0 mL/min (70-130); Calcium 9.9 mg/dL (7.8-10.44); Carbon Dioxide 26 mmol/L (23-31); Chloride 102 mmol/L (98-107); Estimated GFR-MDRD Greater than 90; Globulin 3.7 g/dL (2.4-3.5); Glucose 100 mg/dL (83-110); Lipase 53 U/L (8-78); Potassium 4.1 mmol/L (3.5-5.1); Protein, Total 7.6 g/dL (5.8-8.1); Sodium 138 mmol/L (136-145)
[2019-12-12 15:48] LABS: Bacteria/HPF None Seen HPF (None Seen); Bilirubin Negative (Negative); Blood, Urine Trace (Negative); Clarity Clear (Clear); Glucose, Urine (Dipstick) Normal (Negative); Leukocyte Negative Leu/uL (Negative); Nitrite Negative (Negative); Protein, Urine (Dipstick) Negative (Neg-Trace); RBC/HPF 0-3 HPF (0-3); Squamous Epithelial 0-3 HPF (0-3); Urobilinogen Normal mg/dL (Less than 2); WBC/HPF 0-3 HPF (0-3)
--- NOTE | 2019-12-12 16:08 | CT ---
CT ABDOMEN AND PELVIS WITH IV CONTRAST: 12/12/19 PROVIDED CLINICAL HISTORY: Abdominal pain. FINDINGS: Comparison 07/13/19. The visualized lung bases appear free of significant opacity. Stable right adrenal nodule. The solid abdominal organs demonstrate an otherwise unremarkable CT appearance. There is no bowel dilatation, inflammatory fat stranding, free fluid, or free air apparent. The appen debbie appears normal. Mesh hernia repair in the anterior abdominal wall is demonstrated. Small fat cont aining right inguinal hernia. The osseous structures demonstrate no concerning lytic or blastic lesions. Vascular calcifications ar e seen. IMPRESSION: No evidence for an acute process. POS: [facility]
== END 2019-12-12 16:40 | disposition home or self-care (01) ==
LOC: ERS 13:13
DX: R10.13 Epigastric pain (principal); I10 Essential (primary) hypertension; E78.00 Pure hypercholesterolemia, unspecified; E11.9 Type 2 diabetes mellitus without complications; J44.9 Chronic obstructive pulmonary disease, unspecified; Z79.84 Long term (current) use of oral hypoglycemic drugs; Z79.899 Other long term (current) drug therapy
CPT/HCPCS: 36415; 71045; 74177; 80053; 81003; 81015; 83690; 83880; 84484; 85025; 93005; Q9967

== ENCOUNTER 2022-03-06 09:11 | Inpatient (IN) | payer MEDICARE, OTHER ==
[~2022-03-06 09:11] MED LIST changes: +Aspirin 325 MG TAB PO SCH; -Iopamidol-370 76% 500 ML 1 ML ONE
[2022-03-06 09:37] LABS: #Basophils 0.1 thou/uL (0.0-0.2); #Eosinphils 0.4 thou/uL (0.0-0.7); #Lymphocytes 2.5 thou/uL (1.20-3.40); #Monocytes 0.7 thou/uL (0.11-0.59); #Neutrophils 5.6 thou/uL (1.40-6.50); %Basophils 0.7 % (0.0-1.0); %Eosinophils 4.2 % (0.0-10.0); %Lymphocytes 26.9 % (21.0-51.0); %Monocytes 7.9 % (0.0-10.0); %Neutrophils 60.3 % (42.0-75.0); Hemoglobin 13.9 g/dL (14.0-18.0); Mean Corpuscular Hemoglobin 29.8 pg (27.0-31.0); Mean Corpuscular Volume 92.9 fL (78.0-98.0); Mean Platelet Volume 8.8 fL (7.4-10.4); Platelet Count 198 thou/uL (130-400); RBC Distribution Width 12.3 % (11.5-14.5); Red Blood Cell (RBC) Count 4.68 mill/uL (4.70-6.10); White Blood Cell (WBC) Count 9.3 thou/uL (4.8-10.8)
[2022-03-06 09:46] LABS: PTT 30.2 sec (22.9-36.1); Prothrombin Time 13.1 sec (12.0-14.7)
[2022-03-06 10:10] LABS: Anion Gap 17 mmol/L (10-20); Carbon Dioxide 18 mmol/L (23-31); Chloride 105 mmol/L (98-107); Potassium 4.5 mmol/L (3.5-5.1); Sodium 135 mmol/L (136-145)
[2022-03-06 10:11] LABS: ALT (SGPT) 30 U/L (8-55); AST (SGOT) 24 U/L (5-34); Acetaminophen Less than 10.0 mcg/mL (10.0-30.0); Albumin 3.6 g/dL (3.4-4.8); Alcohol Less than 10 mg/dL (Less than 10); Alkaline Phosphatase 131 U/L (40-110); BUN (Urea Nitrogen) 14 mg/dL (8.4-25.7); Bilirubin, Total 0.4 mg/dL (0.2-1.2); CK (CPK) 65 U/L (30-200); Calc. Creatinine Clearance 0 mL/min (70-130); Calcium 9.4 mg/dL (7.8-10.44); Estimated GFR 66; Globulin 3.8 g/dL (2.4-3.5); Glucose 176 mg/dL (83-110); Lipase 10 U/L (8-78); Protein, Total 7.4 g/dL (5.8-8.1); Salicylate Less than 8.0 mg/dL (15.0-30.0)
[2022-03-06 11:21] LABS: Bacteria/HPF None Seen HPF (None Seen); Bilirubin Negative (Negative); Blood, Urine Trace (Negative); Clarity Clear (Clear); Glucose, Urine (Dipstick) Normal (Negative); Ketone, Urine Negative (Negative); Leukocyte Negative Leu/uL (Negative); Nitrite Negative (Negative); Protein, Urine (Dipstick) 30 mg/dL (Neg-Trace); RBC/HPF 0-3 HPF (0-3); Specific Gravity, Urine 1.009 (1.002-1.036); Squamous Epithelial 0-3 HPF (0-3); Urobilinogen Normal mg/dL (Less than 2); WBC/HPF 0-3 HPF (0-3)
[2022-03-06 11:25] LABS: Amphetamine Not Detected (NotDetected); Barbiturates Screen Not Detected (NotDetected); Benzodiazepine Screen Not Detected (NotDetected); Cocaine Metabolite Screen Not Detected (NotDetected); Methadone Not Detected (NotDetected); Methamphetamine Not Detected (NotDetected); Opiate Screen Not Detected (NotDetected); Oxycodone Screen Not Detected (NotDetected); Phencyclidine (PCP) Not Detected (NotDetected); THC/Cannabinoid Screen Not Detected (NotDetected); Tricyclic Screen Not Detected (NotDetected)
[2022-03-06 11:44] LABS: SARS-CoV-2 NAA Rapid Test Not Detected (NotDetected)
[2022-03-06] MEDS ORDERED: Aspirin Chewable 81 MG TAB ONE (12:10)
[2022-03-06 13:17] LABS: Troponin I 0.012 ng/mL (< 0.028)
[2022-03-06 14:17] VITALS: BMI 30.9
[2022-03-06] MEDS ORDERED: Ondansetron PF 4 MG/2 ML Vial IVP PRN (14:26)
[2022-03-06] MEDS ORDERED: Ondansetron ODT 4 MG TAB PO PRN (14:26)
[2022-03-06] MEDS ORDERED: Bisacodyl 10 MG SUPP PR PRN (15:18)
[2022-03-06] MEDS ORDERED: Acetaminophen 650 MG Suppository PR PRN (15:18)
[2022-03-06] MEDS ORDERED: Acetaminophen 325 MG TAB PO PRN (15:18)
[2022-03-06 15:50] LABS: Lactic Acid 2.2 mmol/L (0.5-2.2)
[2022-03-06 15:58] LABS: Troponin I 0.022 ng/mL (< 0.028)
[2022-03-06] MEDS ORDERED: Dextrose 50% Abboject 50 ML SYRINGE SLOW IVP PRN (16:34)
[2022-03-06] MEDS ORDERED: Dextrose 5% in Water 1,000 ML IV PRN (16:34)
[2022-03-06] MEDS ORDERED: HumaLOG 300 UNITS/3 ML VIAL SC PRN ×2 (16:34)
[2022-03-06] MEDS ORDERED: Sodium Bicarb 50 MEQ/50 ML Abboject 8.4% SYRINGE IVP SCH (16:45)
[2022-03-06] MEDS ORDERED: hydrALAZINE 20 MG/ML VIAL SLOW IVP PRN (18:52)
[2022-03-06] MEDS ORDERED: Sodium Bicarbonate 50 MEQ in Dextrose 5% in Water 1,000 ML IV SCH (19:00)
[2022-03-06] MEDS: Lactated Ringer's 1,000 ML IV SCH (19:27)
[2022-03-06] MEDS: Rosuvastatin 20 MG TAB PO SCH (19:48)
[2022-03-07] MEDS: Lactated Ringer's 1,000 ML IV SCH ×2 (07:30→20:48)
[2022-03-07 07:51] LABS: #Eosinphils 0.4 thou/uL (0.0-0.7); #Lymphocytes 2.8 thou/uL (1.20-3.40); #Monocytes 0.8 thou/uL (0.11-0.59); %Basophils 0.5 % (0.0-1.0); %Eosinophils 5.6 % (0.0-10.0); %Lymphocytes 39.8 % (21.0-51.0); %Monocytes 10.9 % (0.0-10.0); %Neutrophils 43.2 % (42.0-75.0); Hemoglobin 12.8 g/dL (14.0-18.0); Mean Corpuscular HGB CONC 32.2 g/dL (32.0-36.0); Mean Corpuscular Hemoglobin 29.9 pg (27.0-31.0); Mean Corpuscular Volume 93.1 fL (78.0-98.0); Mean Platelet Volume 8.8 fL (7.4-10.4); Platelet Count 189 thou/uL (130-400); RBC Distribution Width 12.4 % (11.5-14.5); Red Blood Cell (RBC) Count 4.29 mill/uL (4.70-6.10); White Blood Cell (WBC) Count 6.9 thou/uL (4.8-10.8)
[2022-03-07 08:10] LABS: Anion Gap 12 mmol/L (10-20); BUN (Urea Nitrogen) 9 mg/dL (8.4-25.7); Calc. Creatinine Clearance 99 mL/min (70-130); Calcium 9.2 mg/dL (7.8-10.44); Carbon Dioxide 24 mmol/L (23-31); Cardiac Risk 3.2 (Less than 4.5); Chloride 105 mmol/L (98-107); Cholesterol 137 mg/dl (< 200 Desired); Estimated GFR 88; Glucose 190 mg/dL (83-110); HDL Cholesterol 43 mg/dL (>60 Neg Risk); LDL Cholesterol, Calculated 73 mg/dL; Potassium 3.8 mmol/L (3.5-5.1); Sodium 137 mmol/L (136-145); Triglycerides 104 mg/dL (Less than 150)
[2022-03-07] MEDS: Amlodipine 10 MG TAB PO SCH (09:11)
[2022-03-07] MEDS: Aspirin 81 mg Enteric Coated Tablet PO SCH (09:11)
[2022-03-07] MEDS: Rosuvastatin 20 MG TAB PO SCH (20:49)
[2022-03-08] MEDS: Amlodipine 10 MG TAB PO SCH (09:57)
[2022-03-08] MEDS: Aspirin 81 mg Enteric Coated Tablet PO SCH (09:57)
[2022-03-08] MEDS: Lactated Ringer's 1,000 ML IV SCH (12:10)
[2022-03-08] MEDS: Rosuvastatin 20 MG TAB PO SCH (20:55)
[2022-03-09] MEDS: Lactated Ringer's 1,000 ML IV SCH ×2 (01:43→15:36)
[2022-03-09] MEDS ORDERED: PROPOFOL 200 MG/20 ML VIAL ONE (11:56)
[2022-03-09] MEDS: Aspirin 81 mg Enteric Coated Tablet PO SCH (12:55)
[2022-03-09] MEDS: Amlodipine 10 MG TAB PO SCH (12:55)
[2022-03-09] MEDS ORDERED: Magnesium Citrate 300 ML BOT PO SCH (14:45)
[2022-03-10] MEDS ORDERED: Lidocaine 1% (PF) 30 ML VIAL ONE (07:40)
[2022-03-10] MEDS ORDERED: Polyethylene Glycol 3350 17 GM Packet PO SCH (09:00)
[2022-03-10] MEDS: Amlodipine 10 MG TAB PO SCH (09:52)
[2022-03-10] MEDS: Aspirin 81 mg Enteric Coated Tablet PO SCH (09:52)
[2022-03-10] MEDS: Lactated Ringer's 1,000 ML IV SCH (09:52)
[2022-03-10] MEDS: Rosuvastatin 20 MG TAB PO SCH (09:53)
[2022-03-10 15:59] VITALS: BP 159/60; TEMP 98
== END 2022-03-10 16:15 | DRG 41 ==
LOC: ERS 09:11 → NEURO 11:48 → OBSVTOIN 03-07 10:58
PROVIDERS: ADMIT Family Medicine; ATTEND Family Medicine
PROC: B24BZZ4 Ultrasonography of Heart with Aorta, Transesophageal (ICD-10-PCS; 2022-03-09)
PROC: 0JH632Z Insertion of Monitoring Device into Chest Subcutaneous Tissue and Fascia, Percutaneous Approach (ICD-10-PCS; principal; 2022-03-10)
DX: I63.9 Cerebral infarction, unspecified (principal); Z20.822 Contact with and (suspected) exposure to COVID-19; R29.711 NIHSS score 11; Q21.1 Atrial septal defect; R41.4 Neurologic neglect syndrome; N30.00 Acute cystitis without hematuria; E87.2 Acidosis; G81.94 Hemiplegia, unspecified affecting left nondominant side; G93.49 Other encephalopathy; I70.0 Atherosclerosis of aorta; I08.1 Rheumatic disorders of both mitral and tricuspid valves; I10 Essential (primary) hypertension; E78.5 Hyperlipidemia, unspecified; E11.9 Type 2 diabetes mellitus without complications; J44.9 Chronic obstructive pulmonary disease, unspecified; N40.0 Benign prostatic hyperplasia without lower urinary tract symptoms; R29.810 Facial weakness; R47.1 Dysarthria and anarthria; R47.01 Aphasia; E11.51 Type 2 diabetes mellitus with diabetic peripheral angiopathy without gangrene; I48.91 Unspecified atrial fibrillation; Z28.82 Immunization not carried out because of caregiver refusal; Z79.899 Other long term (current) drug therapy; Z79.84 Long term (current) use of oral hypoglycemic drugs; Z79.82 Long term (current) use of aspirin; Z95.828 Presence of other vascular implants and grafts; Z98.890 Other specified postprocedural states; Z82.49 Family history of ischemic heart disease and other diseases of the circulatory system
CPT/HCPCS: 33285; 36415; 36416; 70450; 70551; 71045; 74230; 80048; 80053; 80061; 80306; 80307; 81003; 81015; 82140; 82550; 83605; 83690; 83880; 84443; 84484; 85025; 85610; 85730; 87040; 93005; 93306; 93312; 93880; 95712; 95819; 95957; 96360; 96361; 96374; C1764; G0378; J2001; J2704; J7070; J7120; U0002

== ENCOUNTER 2022-04-05 16:02 | Inpatient (IN) | payer MEDICARE, OTHER ==
[~2022-04-05 16:02] MED LIST changes: -Aspirin 325 MG TAB PO SCH; +Iopamidol-370 76% 500 ML 1 ML ONE
[2022-04-05] MEDS ORDERED: Dextrose 50% Abboject 50 ML SYRINGE ONE (16:14)
[2022-04-05 16:34] LABS: #Eosinphils 0.4 thou/uL (0.0-0.7); #Lymphocytes 3.7 thou/uL (1.20-3.40); #Monocytes 1.1 thou/uL (0.11-0.59); #Neutrophils 5.9 thou/uL (1.40-6.50); %Basophils 0.1 % (0.0-1.0); %Eosinophils 3.3 % (0.0-10.0); %Lymphocytes 33.3 % (21.0-51.0); %Monocytes 9.7 % (0.0-10.0); %Neutrophils 53.6 % (42.0-75.0); Hemoglobin 13.8 g/dL (14.0-18.0); Mean Corpuscular HGB CONC 33.4 g/dL (32.0-36.0); Mean Corpuscular Hemoglobin 30.1 pg (27.0-31.0); Mean Corpuscular Volume 89.9 fL (78.0-98.0); Mean Platelet Volume 10.5 fL (7.4-10.4); Platelet Count 146 thou/uL (130-400); RBC Distribution Width 12.3 % (11.5-14.5); Red Blood Cell (RBC) Count 4.61 mill/uL (4.70-6.10)
[2022-04-05 16:49] LABS: ALT (SGPT) 47 U/L (8-55); AST (SGOT) 39 U/L (5-34); Albumin 3.8 g/dL (3.4-4.8); Alkaline Phosphatase 78 U/L (40-110); Anion Gap 22 mmol/L (10-20); BUN (Urea Nitrogen) 25 mg/dL (8.4-25.7); Bilirubin, Total 0.4 mg/dL (0.2-1.2); Calc. Creatinine Clearance 0 mL/min (70-130); Calcium 9.5 mg/dL (7.8-10.44); Carbon Dioxide 22 mmol/L (23-31); Chloride 101 mmol/L (98-107); Estimated GFR 34; Glucose 64 mg/dL (83-110); Magnesium 1.6 mg/dL (1.6-2.6); Potassium 3.6 mmol/L (3.5-5.1); Protein, Total 7.8 g/dL (5.8-8.1); Sodium 141 mmol/L (136-145)
[2022-04-05] MEDS ORDERED: Aspirin Chewable 81 MG TAB ONE (17:08)
[2022-04-05 18:19] LABS: Bacteria/HPF 1+ HPF (None Seen); Bilirubin Negative (Negative); Blood, Urine 1+ (Negative); Clarity Clear (Clear); Glucose, Urine (Dipstick) Normal (Negative); Ketone, Urine Negative (Negative); Leukocyte Negative Leu/uL (Negative); Nitrite Negative (Negative); Protein, Urine (Dipstick) 70 mg/dL (Neg-Trace); RBC/HPF 0-3 HPF (0-3); Specific Gravity, Urine 1.044 (1.002-1.036); Squamous Epithelial 0-3 HPF (0-3); Urobilinogen Normal mg/dL (Less than 2); pH, Urine 5.5 (5.0-9.0)
[2022-04-05] MEDS ORDERED: Ondansetron PF 4 MG/2 ML Vial IVP PRN (19:31)
[2022-04-05] MEDS ORDERED: Ondansetron ODT 4 MG TAB PO PRN (19:31)
[2022-04-05] MEDS ORDERED: Dextrose 50% Abboject 50 ML SYRINGE SLOW IVP PRN (19:31)
[2022-04-05] MEDS ORDERED: Dextrose 5% in Water 1,000 ML IV PRN (19:31)
[2022-04-05] MEDS ORDERED: HumaLOG 300 UNITS/3 ML VIAL SC PRN (19:31)
[2022-04-05] MEDS ORDERED: Bisacodyl 5 MG TAB PO PRN (19:31)
[2022-04-05] MEDS ORDERED: Labetalol HCl 100 MG/20 ML VIAL SLOW IVP PRN (19:31)
[2022-04-05] MEDS ORDERED: HYDROcodone/Acetaminophen 5/325 mg Tablet PO PRN (19:31)
[2022-04-05] MEDS ORDERED: Senokot S 8.6-50 MG TAB PO PRN (19:31)
[2022-04-05] MEDS ORDERED: Acetaminophen 325 MG TAB PO PRN (19:31)
[2022-04-05] MEDS ORDERED: cefTRIAXone\\ROCEPHIN 1 GM in Sodium Chloride 0.9% 100 ML IVPB SCH (21:00)
[2022-04-05 23:44] VITALS: BMI 33.0
[2022-04-06 06:02] LABS: #Eosinphils 0.4 thou/uL (0.0-0.7); #Neutrophils 4.6 thou/uL (1.40-6.50); %Basophils 0.5 % (0.0-1.0); %Eosinophils 4.2 % (0.0-10.0); %Lymphocytes 33.5 % (21.0-51.0); %Monocytes 10.9 % (0.0-10.0); %Neutrophils 50.9 % (42.0-75.0); Hemoglobin 12.7 g/dL (14.0-18.0); Mean Corpuscular HGB CONC 33.9 g/dL (32.0-36.0); Mean Corpuscular Hemoglobin 30.5 pg (27.0-31.0); Mean Corpuscular Volume 90.1 fL (78.0-98.0); Mean Platelet Volume 8.9 fL (7.4-10.4); Platelet Count 173 thou/uL (130-400); RBC Distribution Width 12.2 % (11.5-14.5); Red Blood Cell (RBC) Count 4.17 mill/uL (4.70-6.10)
[2022-04-06 06:20] LABS: Hemoglobin A1c 8.1 % (4.0-6.0)
[2022-04-06 06:24] LABS: ALT (SGPT) 42 U/L (8-55); AST (SGOT) 33 U/L (5-34); Albumin 3.4 g/dL (3.4-4.8); Alkaline Phosphatase 62 U/L (40-110); Anion Gap 14 mmol/L (10-20); BUN (Urea Nitrogen) 22 mg/dL (8.4-25.7); Bilirubin, Total 0.4 mg/dL (0.2-1.2); Calc. Creatinine Clearance 51 mL/min (70-130); Calcium 9.1 mg/dL (7.8-10.44); Carbon Dioxide 27 mmol/L (23-31); Cardiac Risk 2.4 (Less than 4.5); Chloride 103 mmol/L (98-107); Cholesterol 87 mg/dl (< 200 Desired); Estimated GFR 40; Globulin 3.2 g/dL (2.4-3.5); Glucose 85 mg/dL (83-110); HDL Cholesterol 36 mg/dL (>60 Neg Risk); LDL Cholesterol, Calculated 35 mg/dL; Protein, Total 6.6 g/dL (5.8-8.1); Sodium 141 mmol/L (136-145); Triglycerides 79 mg/dL (Less than 150)
[2022-04-06 06:36] LABS: Potassium 2.9 mmol/L (3.5-5.1)
[2022-04-06] MEDS ORDERED: Electrolyte Replacement Protocol FS PRN (07:45)
[2022-04-06 08:07] LABS: Magnesium 1.6 mg/dL (1.6-2.6)
[2022-04-06] MEDS: Enoxaparin Sodium 40 MG/0.4 ML SYRINGE SC SCH (08:45)
[2022-04-06] MEDS: Potassium Chloride 20 MEQ TAB PO SCH ×2 (08:45→12:26)
[2022-04-06] MEDS: Aspirin 81 mg Enteric Coated Tablet PO SCH (08:45)
[2022-04-06] MEDS ORDERED: Aspirin 81 mg Enteric Coated Tablet PO SCH (09:00)
[2022-04-06] MEDS ORDERED: Magnesium 2 GM/50 ML(in water) 2 GM in Premix Bag 1 BAG IVPB SCH (09:00)
[2022-04-06] MEDS: HumaLOG 300 UNITS/3 ML VIAL SC PRN (12:27)
[2022-04-06] MEDS: Rosuvastatin 20 MG TAB PO SCH (20:29)
[2022-04-07] MEDS: Aspirin 81 mg Enteric Coated Tablet PO SCH (09:58)
[2022-04-07] MEDS: Enoxaparin Sodium 40 MG/0.4 ML SYRINGE SC SCH (09:58)
[2022-04-07 10:11] LABS: Anion Gap 13 mmol/L (10-20); BUN (Urea Nitrogen) 17 mg/dL (8.4-25.7); Calc. Creatinine Clearance 57 mL/min (70-130); Calcium 9.2 mg/dL (7.8-10.44); Carbon Dioxide 25 mmol/L (23-31); Chloride 105 mmol/L (98-107); Estimated GFR 45; Glucose 157 mg/dL (83-110); Potassium 3.5 mmol/L (3.5-5.1); Sodium 139 mmol/L (136-145)
[2022-04-07] MEDS ORDERED: Potassium Chloride 20 MEQ TAB PO SCH (12:00)
[2022-04-07] MEDS ORDERED: Amlodipine 10 MG TAB PO SCH (12:45)
[2022-04-07] MEDS: Rosuvastatin 20 MG TAB PO SCH (21:17)
[2022-04-08 05:58] LABS: Anion Gap 15 mmol/L (10-20); BUN (Urea Nitrogen) 18 mg/dL (8.4-25.7); Calc. Creatinine Clearance 55 mL/min (70-130); Carbon Dioxide 21 mmol/L (23-31); Chloride 108 mmol/L (98-107); Estimated GFR 44; Glucose 123 mg/dL (83-110); Potassium 3.5 mmol/L (3.5-5.1); Sodium 140 mmol/L (136-145)
[2022-04-08] MEDS: Amlodipine 10 MG TAB PO SCH (08:39)
[2022-04-08] MEDS: Aspirin 81 mg Enteric Coated Tablet PO SCH (08:40)
[2022-04-08] MEDS: Enoxaparin Sodium 40 MG/0.4 ML SYRINGE SC SCH (08:40)
[2022-04-08] MEDS: Clopidogrel Bisulfate 75 MG TAB PO SCH (08:40)
[2022-04-08] MEDS ORDERED: Potassium Chloride 20 MEQ TAB PO SCH (12:00)
[2022-04-08 15:58] LABS: Potassium 3.8 mmol/L (3.5-5.1)
[2022-04-08] MEDS: Rosuvastatin 20 MG TAB PO SCH (20:42)
[2022-04-09] MEDS: Amlodipine 10 MG TAB PO SCH (09:01)
[2022-04-09] MEDS: Aspirin 81 mg Enteric Coated Tablet PO SCH (09:01)
[2022-04-09] MEDS: Clopidogrel Bisulfate 75 MG TAB PO SCH (09:01)
[2022-04-09] MEDS: Enoxaparin Sodium 40 MG/0.4 ML SYRINGE SC SCH (09:01)
[2022-04-09] MEDS: HumaLOG 300 UNITS/3 ML VIAL SC PRN (17:05)
[2022-04-09] MEDS: Rosuvastatin 20 MG TAB PO SCH (20:22)
[2022-04-09] MEDS: Tamsulosin HCl 0.4 MG CAP PO SCH (20:22)
[2022-04-10 06:17] LABS: #Eosinphils 0.5 thou/uL (0.0-0.7); #Lymphocytes 2.7 thou/uL (1.20-3.40); #Monocytes 0.9 thou/uL (0.11-0.59); #Neutrophils 3.7 thou/uL (1.40-6.50); %Basophils 0.5 % (0.0-1.0); %Eosinophils 5.9 % (0.0-10.0); %Lymphocytes 34.2 % (21.0-51.0); %Neutrophils 47.3 % (42.0-75.0); Hemoglobin 13.5 g/dL (14.0-18.0); Mean Corpuscular HGB CONC 32.2 g/dL (32.0-36.0); Mean Corpuscular Hemoglobin 29.7 pg (27.0-31.0); Mean Corpuscular Volume 92.2 fL (78.0-98.0); Mean Platelet Volume 8.7 fL (7.4-10.4); Platelet Count 188 thou/uL (130-400); RBC Distribution Width 12.2 % (11.5-14.5); Red Blood Cell (RBC) Count 4.54 mill/uL (4.70-6.10); White Blood Cell (WBC) Count 7.8 thou/uL (4.8-10.8)
[2022-04-10 06:43] LABS: Anion Gap 15 mmol/L (10-20); BUN (Urea Nitrogen) 15 mg/dL (8.4-25.7); Calc. Creatinine Clearance 58 mL/min (70-130); Calcium 8.9 mg/dL (7.8-10.44); Carbon Dioxide 23 mmol/L (23-31); Chloride 108 mmol/L (98-107); Estimated GFR 47; Glucose 130 mg/dL (83-110); Potassium 3.7 mmol/L (3.5-5.1); Sodium 142 mmol/L (136-145)
[2022-04-10] MEDS: Amlodipine 10 MG TAB PO SCH (08:54)
[2022-04-10] MEDS: Aspirin 81 mg Enteric Coated Tablet PO SCH (08:54)
[2022-04-10] MEDS: Clopidogrel Bisulfate 75 MG TAB PO SCH (08:54)
[2022-04-10] MEDS: Enoxaparin Sodium 40 MG/0.4 ML SYRINGE SC SCH (08:55)
[2022-04-10] MEDS: HumaLOG 300 UNITS/3 ML VIAL SC PRN (12:23)
[2022-04-10] MEDS: Rosuvastatin 20 MG TAB PO SCH (22:01)
[2022-04-10] MEDS: Tamsulosin HCl 0.4 MG CAP PO SCH (22:02)
[2022-04-11] MEDS: Amlodipine 10 MG TAB PO SCH (10:03)
[2022-04-11] MEDS: Enoxaparin Sodium 40 MG/0.4 ML SYRINGE SC SCH (10:05)
[2022-04-11] MEDS: Aspirin 81 mg Enteric Coated Tablet PO SCH (10:05)
[2022-04-11] MEDS: Clopidogrel Bisulfate 75 MG TAB PO SCH (10:05)
[2022-04-11] MEDS: HumaLOG 300 UNITS/3 ML VIAL SC PRN (11:50)
[2022-04-11 16:05] VITALS: BP 137/76; TEMP 98.4
== END 2022-04-11 16:21 | DRG 64 ==
LOC: ERS 16:02 → NEURO 19:00
PROVIDERS: ADMIT Internal Medicine; ATTEND Internal Medicine
DX: I63.89 Other cerebral infarction (principal); I21.A1 Myocardial infarction type 2; G81.94 Hemiplegia, unspecified affecting left nondominant side; N17.9 Acute kidney failure, unspecified; Q21.1 Atrial septal defect; N39.0 Urinary tract infection, site not specified; Z20.822 Contact with and (suspected) exposure to COVID-19; E78.00 Pure hypercholesterolemia, unspecified; J44.9 Chronic obstructive pulmonary disease, unspecified; K21.9 Gastro-esophageal reflux disease without esophagitis; R29.704 NIHSS score 4; D64.9 Anemia, unspecified; E11.51 Type 2 diabetes mellitus with diabetic peripheral angiopathy without gangrene; E66.9 Obesity, unspecified; G93.89 Other specified disorders of brain; N40.1 Benign prostatic hyperplasia with lower urinary tract symptoms; Z79.84 Long term (current) use of oral hypoglycemic drugs; Z79.899 Other long term (current) drug therapy; Z79.82 Long term (current) use of aspirin; Z68.33 Body mass index [BMI] 33.0-33.9, adult; Z79.01 Long term (current) use of anticoagulants
CPT/HCPCS: 36415; 36416; 70450; 70496; 70498; 70551; 71045; 76770; 80048; 80053; 80061; 81003; 81015; 82550; 83036; 83735; 84443; 84484; 85025; 87086; 93005; 94760; 95712; 95819; 95957; J0696; J1650; J1815; J3475; J3490; J7999; Q9967; U0003; U0005